=== PATIENT | female | born 1990 | race Caucasian/White ===

== ENCOUNTER 2016-11-26 17:23 | Emergency (ER) | payer SELFPAY ==
[2016-11-26 17:32] VITALS: BP 139/73
[2016-11-26 18:13] LABS: APPEARANCE,URINE CLOUDY; BILIRUBIN,URINE NEGATIVE (NEGATIVE); GLUCOSE, URINE NEGATIVE (NEGATIVE); KETONES,URINE NEGATIVE (NEGATIVE); LEUKOCYTE ESTERASE,URINE LARGE (NEGATIVE); NITRITE,URINE NEGATIVE (NEGATIVE); PROTEIN,URINE 100 mg/dL (NEGATIVE); URINE SPECIFIC GRAVITY 1.009; UROBILINOGEN,URINE NEGATIVE mg/dL (<2.0)
--- NOTE | 2016-11-26 18:44 | ER Document Report ---
ED Medical Screen (RME) - General Chief Complaint: Abdominal Pain Stated Complaint: ABDOMINAL PAIN,NAUSEA Time Seen by Provider: 11/26/16 18:43 Notes: Patient states that her last menstrual period was October 30. She also states that she took a home test was positive and she noticed today that she is having some abdominal cramping and spotting. TRAVEL OUTSIDE OF THE [place] IN LAST 30 DAYS: No - Related Data Allergies/Adverse Reactions: No Known Allergies Allergy (Unverified 11/26/16 17:31) Past Medical History - Social History Chew tobacco use (# tins/day): No Frequency of alcohol use: None Drug Abuse: None Renal/ Medical History: Denies: Hx Peritoneal Dialysis Past Surgical History: Reports: Hx Section - Immunizations Hx Diphtheria, Pertussis, Tetanus Vaccination: No Physical Exam - Vital signs Vitals: Temp Pulse Resp BP Pulse Ox 98.5 F 104 H 14 139/73 H 100 11/26/16 17:30 11/26/16 17:30 11/26/16 17:30 11/26/16 17:30 11/26/16 17:30 Course - Vital Signs Vital signs: Temp Pulse Resp BP Pulse Ox 98.5 F 104 H 14 139/73 H 100 11/26/16 17:30 11/26/16 17:30 11/26/16 17:30 11/26/16 17:30 11/26/16 17:30 - Laboratory Laboratory results interpreted by me: 11/26/16 17:35 Urine Protein 100 H Urine Blood LARGE H Ur Leukocyte Esterase LARGE H
[2016-11-26] MEDS ORDERED: ACETAMINOPHEN 325 MG TABLET PO ONE (20:27)
[2016-11-26 20:31] LABS: ABSOLUTE LYMPHOCYTES (AUTO) 1.2 10^3/uL (0.5-4.7); ABSOLUTE MONOCYTES (AUTO) 0.7 10^3/uL (0.1-1.4); ABSOLUTE NEUT (AUTO) 10.7 10^3/uL (1.7-8.2); BASOPHILS % (AUTO) 0.2 % (0-2); EOSINOPHILS % (AUTO) 0.1 % (0-6); HEMATOCRIT 42.3 % (36.0-47.0); HEMOGLOBIN 14.6 g/dL (12.0-15.5); HGB HCT DIFFERENCE 1.5; LYMPHOCYTES % (AUTO) 9.7 % (13-45); MEAN CORPUSCULAR HEMOGLOBIN 31.1 pg (27.0-33.4); MEAN CORPUSCULAR HGB CONC 34.6 g/dL (32.0-36.0); MEAN CORPUSCULAR VOLUME 90 fl (80-97); MONOCYTES % (AUTO) 5.7 % (3-13); RED CELL DISTRIBUTION WIDTH 13.3 % (11.5-14.0); SEGMENTED NEUTROPHILS % (AUTO) 84.3 % (42-78); WHITE BLOOD COUNT 12.7 10^3/uL (4.0-10.5)
[2016-11-26 20:51] LABS: APPEARANCE,URINE SLIGHTLY-CLOUDY; BILIRUBIN,URINE NEGATIVE (NEGATIVE); GLUCOSE, URINE NEGATIVE (NEGATIVE); KETONES,URINE 20 mg/dL (NEGATIVE); LEUKOCYTE ESTERASE,URINE LARGE (NEGATIVE); NITRITE,URINE NEGATIVE (NEGATIVE); PROTEIN,URINE 100 mg/dL (NEGATIVE); URINE SPECIFIC GRAVITY 1.009; UROBILINOGEN,URINE NEGATIVE mg/dL (<2.0)
[2016-11-26 23:25] LABS: ALANINE AMINOTRANSFERASE 35 U/L (9-52); ALKALINE PHOSPHATASE 63 U/L (38-126); ANION GAP 11 (5-19); ASPARTATE AMINO TRANSFERASE 25 U/L (14-36); BILIRUBIN,DIRECT 0.3 mg/dL (0.0-0.4); BILIRUBIN,TOTAL 0.6 mg/dL (0.2-1.3); BLOOD UREA NITROGEN 8 mg/dL (7-20); CALCIUM 9.1 mg/dL (8.4-10.2); CARBON DIOXIDE 22 mmol/L (22-30); CHLORIDE 105 mmol/L (98-107); CREATININE RESULT 0.64 mg/dL (0.52-1.25); GLUCOSE 155 mg/dL (75-110); POTASSIUM 3.7 mmol/L (3.6-5.0); SODIUM 138.1 mmol/L (137-145); TOTAL PROTEIN 6.9 g/dL (6.3-8.2)
[2016-11-27] MEDS ORDERED: CEPHALEXIN 500 MG CAPSULE PO ONE (00:36)
--- NOTE | 2016-11-27 00:38 | ER Document Report ---
ED General - General Chief Complaint: Abdominal Pain Stated Complaint: ABDOMINAL PAIN,NAUSEA Time Seen by Provider: 11/26/16 18:43 Notes: Patient is a 26-year-old female at approximately 3 weeks based on LMP who presents with complaints of lower abdominal cramping, dysuria and intermittent bilateral flank pain for the past 3 days. Pain in the lower abdomen is a mild, intermittent, cramping pain that has been unchanged since onset. Patient does report that she has had some intermittent vaginal bleeding over the last 5 days. She has had a positive home test but has not yet had an ultrasound as an outpatient. She has not seen a primary care doctor regarding these concerns. Nothing improves or worsens the dysuria and flank pain but she does note the lower abdominal cramping does resolve when she takes Tylenol. No history of recent similar symptoms. She has not had any fever or constitutional symptoms. Please note that the patient is [place] Sor[place] speaking and a formal hospital firearms sales associate was offered to the patient at the beginning of the encounter and she did decline stating that she would rather have her sister translate. TRAVEL OUTSIDE OF THE [place] IN LAST 30 DAYS: No - Related Data Allergies/Adverse Reactions: No Known Allergies Allergy (Unverified 11/26/16 17:31) Past Medical History - General Information source: Patient - Social History Smoking Status: Never Smoker Chew tobacco use (# tins/day): No Frequency of alcohol use: None Drug Abuse: None Lives with: Family Family History: Reviewed & Not Pertinent Renal/ Medical History: Denies: Hx Peritoneal Dialysis Past Surgical History: Reports: Hx Section - Immunizations Hx Diphtheria, Pertussis, Tetanus Vaccination: No Review of Systems - Review of Systems Notes: Constitutional: Negative for fever. HENT: Negative for sore throat. Eyes: Negative for visual changes. Cardiovascular: Negative for chest pain. Respiratory: Negative for shortness of breath. Gastrointestinal: Positive for lower abdominal cramping Genitourinary: Positive for dysuria. Musculoskeletal: Negative for back pain. Skin: Negative for rash. Neurological: Negative for headaches, weakness or numbness. 10 point ROS negative except as marked above and in HPI. Physical Exam - Vital signs Vitals: Temp Pulse Resp BP Pulse Ox 98.5 F 104 H 14 139/73 H 100 11/26/16 17:30 11/26/16 17:30 11/26/16 17:30 11/26/16 17:30 11/26/16 17:30 Interpretation: Tachycardic Notes: PHYSICAL EXAMINATION: GENERAL: Well-appearing, well-nourished and in no acute distress. HEAD: Atraumatic, normocephalic. EYES: Pupils equal round and reactive to light, extraocular movements intact, sclera anicteric, conjunctiva are normal. ENT: nares patent, oropharynx clear without exudates. Moist mucous membranes. NECK: Normal range of motion, supple without lymphadenopathy LUNGS: Breath sounds clear to auscultation bilaterally and equal. No wheezes rales or rhonchi. HEART: Regular rate and rhythm without murmurs ABDOMEN: Soft, nontender, normoactive bowel sounds. No guarding, no rebound. No masses appreciated. Mild left-sided CVA tenderness. EXTREMITIES: Normal range of motion, no pitting or edema. No cyanosis. NEUROLOGICAL: No focal neurological deficits. Moves all extremities spontaneously and on command. PSYCH: Normal mood, normal affect. SKIN: Warm, Dry, normal turgor, no rashes or lesions noted. Course - Re-evaluation Re-evalutation: 11/27/16 00:37 Patient presents with symptoms consistent with an acute cystitis. Vitals wnl. No history of fever, or constitution symptoms to suggest ascending infection at this time although patient does have mild left-sided flank tenderness. Patient is well in appearance, tolerating oral intake without difficulty. No focal abdominal tenderness to suggest acute appendicitis, biliary pathology, acute pancreatitis, tubo-ovarian abscesses, or pelvic inflammatory disease. Patient has complained of some mild intermittent abdominal pain which she states is now completely resolved after a dose of Tylenol. Patient is currently but her hCG is only 15 making an acute ectopic highly unlikely. A transvaginal ultrasound was obtained prior to me knowing that the hCG was this low. This is not going to be diagnostically useful given how low the hcg is. I have instructed her to follow-up in the women's clinic for repeat hCG to ensure that it is trending downward as I suspect based on her history of vaginal bleeding for the past 5 days that she is actively having a miscarriage. She denies any bleeding at presentation. She knows that her blood type is A+ . Patient will be started on antibiotics at this time. A culture has been sent. They will be discharged with return precautions and follow-up recommendations. 11/27/16 00:40 - Vital Signs Vital signs: Temp Pulse Resp BP Pulse Ox 100.1 F 74 18 139/73 H 96 11/26/16 20:07 11/27/16 00:57 11/27/16 00:57 11/26/16 17:30 11/27/16 00:57 - Laboratory Result Diagrams: 11/26/16 20:05 11/26/16 22:56 Laboratory results interpreted by me: 11/26/16 11/26/16 11/26/16 17:35 19:50 20:05 WBC 12.7 H Seg Neutrophils % 84.3 H Lymphocytes % 9.7 L Absolute Neutrophils 10.7 H Glucose Beta HCG, Quant Urine Protein 100 H 100 H Urine Ketones 20 H Urine Blood LARGE H LARGE H Ur Leukocyte Esterase LARGE H LARGE H 11/26/16 22:56 WBC Seg Neutrophils % Lymphocytes % Absolute Neutrophils Glucose 155 H Beta HCG, Quant 15.55 H Urine Protein Urine Ketones Urine Blood Ur Leukocyte Esterase - Diagnostic Test Radiology reviewed: Reports reviewed Discharge - Discharge Clinical Impression: Vaginal bleeding during , antepartum Urinary tract infection Qualifiers: Urinary tract infection type: acute cystitis Hematuria presence: with hematuria Qualified Code(s): N30.01 - Acute cystitis with hematuria Condition: Good Disposition: HOME, SELF-CARE Additional Instructions: Your urine shows findings consistent with a urinary tract infection. Please take all the antibiotics as directed even if your symptoms have improved. Please follow-up with your primary care physician as needed. Return to emergency room if you develop fever >101F, persistent vomiting, become lethargic , have severe pain in your sides, or any other symptoms that are concerning to you. You need to return to the ED or the women's health clinic in 48 hours for a recheck of your hormone level. The ultrasound is unable to see anything at this time because you are too early in your . Please return if you develop severe abdominal pain, bleeding that goes through more than 2 pads for more than 2 hours, pass out, or have any other symptoms that are concerning to you. Please follow-up closely with your OBGYN regarding todays visit. Prescriptions: Cephalexin Monohydrate [Keflex 500 mg Capsule] 500 mg PO Q6H 7 Days #28 capsule
--- NOTE | 2016-11-27 01:31 | RADIOLOGY REPORT (SQ) ---
EXAM DESCRIPTION: U/S OB TRANSVAGINAL W/O DOP COMPLETED DATE/TIME: 11/27/2016 12:23 am REASON FOR STUDY: abdominal pain, preg COMPARISON: None. TECHNIQUE: Transvaginal static and realtime grayscale images acquired of the pelvis. Additional citlaly cted spectral and color Doppler images recorded. All images stored on PACs. BHC.6 LIMITATIONS: None. FINDINGS: UTERUS: No visualized intrauterine . RIGHT ADNEXA: Normal ovary with normal vascular flow. No adnexal free fluid. No adnexal masses. 3.1 cm right ovary contains a 1.7 cm complex cystic component within normal limits . LEFT ADNEXA: Normal ovary with normal vascular flow. No adnexal free fluid. No adnexal masses. 2.5 cm. FREE FLUID: Small moderate anechoic free pelvic fluid. OTHER: No other significant finding. IMPRESSION: Small to moderate free fluid. NO VISUALIZED INTRA- OR EXTRAUTERINE . bHCG LEVEL TOO LOW TO EXPECT VISUALIZATION OF . ECTOPIC CANNOT BE EXCLUDED. FOLLOW-UP ULTRASOUND AND SERIAL BHCG LEVELS STRONGLY RECOMMENDED TO ACCURATELY ASSESS STATU S. TECHNICAL DOCUMENTATION: JOB ID: [id number] [employer]- All Rights Reserved
== END 2016-11-27 00:57 | disposition home or self-care (01) ==
LOC: ER 17:23
DX: O46.91 Antepartum hemorrhage, unspecified, first trimester (principal); N30.01 Acute cystitis with hematuria; R10.9 Unspecified abdominal pain; R11.0 Nausea; R10.30 Lower abdominal pain, unspecified; Z3A.00 Weeks of gestation of pregnancy not specified
CPT/HCPCS: 36415; 76817; 80053; 81001; 84702; 85025; 86900; 86901; 87086; 87088; 87186; 99284

== ENCOUNTER 2016-12-28 13:22 | Emergency (ER) | payer SELFPAY ==
--- NOTE | 2016-12-28 14:02 | ER Document Report ---
ED GI/ - General Mode of Arrival: Ambulatory Information source: Relative TRAVEL OUTSIDE OF THE [place] IN LAST 30 DAYS: No - HPI Patient complains to provider of: Pelvic pain, , Vaginal bleeding Onset: This morning Vaginal bleeding (Compared to normal period): Spotting <JUAN STEVENS - Last Filed: 12/28/16 15:04> <DIONNELEROY - Last Filed: 12/28/16 15:55> - General Chief Complaint: Vag Bleeding, +preg <12wks Stated Complaint: VAGINAL BLEEDING Time Seen by Provider: 12/28/16 13:47 Notes: Patient is a 26 year old female being translated by her sister at bedside that presents to the emergency department complaining of vaginal spotting with cramping. Patient's sister states that the patient started spotting around 0700 this morning. Patient presented one month ago to the emergency department and was found to be . Patient followed up with [facility] and is now taking vitamins. Patient is A1. (JUAN STEVENS) - Related Data Allergies/Adverse Reactions: No Known Allergies Allergy (Unverified 12/28/16 13:25) Past Medical History - General Information source: Relative - Social History Smoking Status: Never Smoker Cigarette use (# per day): No Chew tobacco use (# tins/day): No Smoking Education Provided: No Drug Abuse: None Family History: None Patient has suicidal ideation: No Patient has homicidal ideation: No Past Surgical History: Reports: Hx Section - Immunizations Hx Diphtheria, Pertussis, Tetanus Vaccination: No <JUAN STEVENS - Last Filed: 12/28/16 15:04> Review of Systems - Review of Systems Constitutional: No symptoms reported EENT: No symptoms reported Cardiovascular: No symptoms reported Respiratory: No symptoms reported Gastrointestinal: No symptoms reported Genitourinary: No symptoms reported Female Genitourinary: , Vaginal bleeding - spotting, Other - cramping Musculoskeletal: No symptoms reported Skin: No symptoms reported Hematologic/Lymphatic: No symptoms reported Neurological/Psychological: No symptoms reported -: Yes All other systems reviewed and negative <JUAN STEVENS - Last Filed: 12/28/16 15:04> Physical Exam - General General appearance: Appears well, Alert - HEENT Head: Normocephalic, Atraumatic Pupils: PERRL Mucous membranes: Moist - Respiratory Respiratory status: No respiratory distress - Cardiovascular Rhythm: Regular - Abdominal Inspection: Gravid female Distension: No distension Organomegaly: No organomegaly - Back Back: Normal - Extremities General upper extremity: Normal inspection, Normal ROM, Normal strength General lower extremity: Normal inspection, Normal ROM, Normal strength - Neurological Neuro grossly intact: Yes Cognition: Normal Orientation: AAOx4 Jaime Coma Scale Eye Opening: Spontaneous Jaime Coma Scale Verbal: Oriented [place] Coma Scale Motor: Obeys Commands Jaime Coma Scale Total: 15 Speech: Normal - Psychological Associated symptoms: Normal affect, Normal mood - Skin Skin Temperature: Warm Skin Moisture: Dry Skin Color: Normal <JUAN STEVENS - Last Filed: 12/28/16 15:04> - Vital signs Vitals: Temp Pulse Resp BP Pulse Ox 98.4 F 78 16 113/63 99 12/28/16 13:25 12/28/16 13:25 12/28/16 13:25 12/28/16 13:25 12/28/16 13:25 Course - Laboratory Result Diagrams: 12/28/16 14:01 <JUAN STEVENS - Last Filed: 12/28/16 15:04> - Laboratory Result Diagrams: 12/28/16 14:01 - Diagnostic Test Radiology reviewed: Reports reviewed - 7 week 6 day intrauterine with heart rate 165. No bleed seen. <LEROY TRUONG - Last Filed: 12/28/16 15:55> - Vital Signs Vital signs: Temp Pulse Resp BP Pulse Ox 98.4 F 78 16 113/63 99 12/28/16 13:25 12/28/16 13:25 12/28/16 13:52 12/28/16 13:25 12/28/16 13:25 - Laboratory Laboratory results interpreted by me: 12/28/16 14:01 Ur Leukocyte Esterase TRACE H Discharge <JUAN STEVENS - Last Filed: 12/28/16 15:04> <LEROY TRUONG - Last Filed: 12/28/16 15:55> - Discharge Clinical Impression: Intrauterine , Bleeding in early Condition: Stable Disposition: HOME, SELF-CARE Additional Instructions: Bleeding During Early : You have been evaluated for passing blood while . While we take this symptom very seriously, most women with your degree of bleeding will go on to have a perfectly normal baby. At this time, there is no indication that a miscarriage will occur. (A miscarriage occurs when the fetus is abnormal. There is no medicine or treatment to prevent it.) A more serious cause of bleeding is tubal . An ultrasound can show whether the is in the uterus or in the tube. Sometimes in early , no fetus is seen. In this case, careful follow-up, including repeat blood tests and repeat ultrasound, is necessary. You should rest in bed until the symptoms have resolved. Do not douche or have sex for at least a week, or until OK'd by the doctor. Don't use tampons. Call the doctor or return for re-examination if there is an increase in bleeding or cramping, extreme weakness, fainting, new abdominal pain, fever, or passage of tissue. //////////////////////////////////////////////////////////////////////////////// //////////////////////////////////////////////////////////////////////////////// //////////////// Your ultrasound shows a 7 week 6 day intrauterine with a heart rate of 155. There is no bleeding seen. You should remain at bedrest and pelvic rest until you are no longer having any cramping or bleeding. Drink plenty of fluids. [facility] for recheck. Referrals: [facility] [Provider Group] - Follow up in 3-5 days Sona Attestation: 12/28/16 15:54 I personally performed the services described in the documentation, reviewed and edited the documentation which was dictated to the scribe in my presence, and it accurately records my words and actions. (LEROY TRUONG) Scribe Documentation - Scribe Written by Sona:: Sona Sanches 12/28/2016 14:10 acting as scribe for :: Dionne <JUAN STEVENS - Last Filed: 12/28/16 15:04>
[2016-12-28 14:20] LABS: APPEARANCE,URINE CLEAR; BILIRUBIN,URINE NEGATIVE (NEGATIVE); GLUCOSE, URINE NEGATIVE (NEGATIVE); KETONES,URINE NEGATIVE (NEGATIVE); LEUKOCYTE ESTERASE,URINE TRACE (NEGATIVE); NITRITE,URINE NEGATIVE (NEGATIVE); PROTEIN,URINE NEGATIVE (NEGATIVE); URINE SPECIFIC GRAVITY 1.018; UROBILINOGEN,URINE NEGATIVE mg/dL (<2.0)
[2016-12-28 14:21] LABS: ABSOLUTE EOSINOPHILS # (AUTO) 0.2 10^3/uL (0.0-0.6); ABSOLUTE LYMPHOCYTES (AUTO) 2.4 10^3/uL (0.5-4.7); ABSOLUTE MONOCYTES (AUTO) 0.6 10^3/uL (0.1-1.4); ABSOLUTE NEUT (AUTO) 5.3 10^3/uL (1.7-8.2); BASOPHILS % (AUTO) 0.5 % (0-2); HEMATOCRIT 38.7 % (36.0-47.0); HEMOGLOBIN 13.2 g/dL (12.0-15.5); HGB HCT DIFFERENCE 0.9; MEAN CORPUSCULAR HEMOGLOBIN 30.1 pg (27.0-33.4); MEAN CORPUSCULAR HGB CONC 34.1 g/dL (32.0-36.0); MEAN CORPUSCULAR VOLUME 88 fl (80-97); MONOCYTES % (AUTO) 7.4 % (3-13); RED BLOOD COUNT 4.37 10^6/uL (3.72-5.28); RED CELL DISTRIBUTION WIDTH 13.5 % (11.5-14.0); SEGMENTED NEUTROPHILS % (AUTO) 62.1 % (42-78); WHITE BLOOD COUNT 8.5 10^3/uL (4.0-10.5)
--- NOTE | 2016-12-28 15:41 | RADIOLOGY REPORT (SQ) ---
EXAM DESCRIPTION: U/S OB TRANSVAGINAL W/O DOP COMPLETED DATE/TIME: 12/28/2016 3:22 pm REASON FOR STUDY: bleeding, cramping COMPARISON: None. TECHNIQUE: Transvaginal static and realtime grayscale images acquired of the pelvis. Additional citlaly cted spectral and color Doppler images recorded. All images stored on PACs. bHCG: Not available. LIMITATIONS: None. FINDINGS: FETUS: Living intrauterine . EGA: 7 weeks 6 days DIDI: 08/10/2017 FHR: 165 beats per minute. SUBCHORIONIC BLEED: No. SIZE OF BLEED: Not applicable. UTERUS: No masses. No anomalies. CERVICAL LENGTH: 4.0 cm Closed. RIGHT ADNEXA: Normal ovary with normal vascular flow. No adnexal free fluid. No adnexal masses. LEFT ADNEXA: Normal ovary with normal vascular flow. No adnexal free fluid. No adnexal masses. FREE FLUID: None. OTHER: No other significant finding. IMPRESSION: LIVING INTRAUTERINE . EGA 7 weeks 6 days. Trimester of : First - 0 to 13 weeks. TECHNICAL DOCUMENTATION: JOB ID: [id number] [employer]- All Rights Reserved
[2016-12-28 16:21] VITALS: BP 115/67
== END 2016-12-28 16:21 | disposition home or self-care (01) ==
LOC: ER 13:22
DX: O26.851 Spotting complicating pregnancy, first trimester (principal); O26.891 Other specified pregnancy related conditions, first trimester; R10.2 Pelvic and perineal pain; Z3A.01 Less than 8 weeks gestation of pregnancy; Z79.899 Other long term (current) drug therapy
CPT/HCPCS: 36415; 76817; 81001; 84702; 85025; 99284

== ENCOUNTER 2017-05-05 13:45 | Emergency (ER) | payer BC ==
[2017-05-05] MEDS ORDERED: NORMAL SALINE 1000 ML 1,000 ML IV ONE (14:18)
--- NOTE | 2017-05-05 14:19 | ER Document Report ---
ED Medical Screen (RME) - General Chief Complaint: Nausea/Vomiting/Diarrhea Stated Complaint: DIARRHEA Time Seen by Provider: 05/05/17 14:18 Notes: Patient states she is 27 weeks and [facility]. She states she has had a normal to this point. She had a normal ultrasound. She states that she comes in today because of nausea vomiting diarrhea since yesterday. She states she thinks that she may have had some bad tomatoes. TRAVEL OUTSIDE OF THE [place] IN LAST 30 DAYS: No - Related Data Allergies/Adverse Reactions: No Known Allergies Allergy (Unverified 12/28/16 13:25) Past Medical History Renal/ Medical History: Denies: Hx Peritoneal Dialysis Past Surgical History: Reports: Hx Section - Immunizations Hx Diphtheria, Pertussis, Tetanus Vaccination: No Physical Exam - Vital signs Vitals: Temp Pulse Resp BP Pulse Ox 98.1 F 100 16 112/60 96 05/05/17 13:54 05/05/17 13:54 05/05/17 13:54 05/05/17 13:54 05/05/17 13:54 Course - Vital Signs Vital signs: Temp Pulse Resp BP Pulse Ox 98.1 F 100 16 112/60 96 05/05/17 13:54 05/05/17 13:54 05/05/17 13:54 05/05/17 13:54 05/05/17 13:54
[2017-05-05 14:53] LABS: ABSOLUTE MONOCYTES (AUTO) 0.5 10^3/uL (0.1-1.4); ABSOLUTE NEUT (AUTO) 9.2 10^3/uL (1.7-8.2); BASOPHILS % (AUTO) 0.3 % (0-2); EOSINOPHILS % (AUTO) 0.4 % (0-6); LYMPHOCYTES % (AUTO) 9.5 % (13-45); MEAN CORPUSCULAR HEMOGLOBIN 31.1 pg (27.0-33.4); MEAN CORPUSCULAR HGB CONC 34.2 g/dL (32.0-36.0); MEAN CORPUSCULAR VOLUME 91 fl (80-97); MONOCYTES % (AUTO) 4.7 % (3-13); PLATELET COUNT 208 10^3/uL (150-450); SEGMENTED NEUTROPHILS % (AUTO) 85.1 % (42-78); TOTAL CELLS COUNTED % (AUTO) 100 %; WHITE BLOOD COUNT 10.8 10^3/uL (4.0-10.5)
[2017-05-05 14:54] LABS: APPEARANCE,URINE SLIGHTLY-CLOUDY; BILIRUBIN,URINE NEGATIVE (NEGATIVE); COLOR,URINE YELLOW; GLUCOSE, URINE NEGATIVE (NEGATIVE); KETONES,URINE 20 mg/dL (NEGATIVE); LEUKOCYTE ESTERASE,URINE NEGATIVE (NEGATIVE); NITRITE,URINE NEGATIVE (NEGATIVE); PROTEIN,URINE NEGATIVE (NEGATIVE); URINE SPECIFIC GRAVITY 1.026; UROBILINOGEN,URINE NEGATIVE mg/dL (<2.0)
[2017-05-05 15:14] LABS: ALANINE AMINOTRANSFERASE 30 U/L (9-52); ALBUMIN 4.1 g/dL (3.5-5.0); ALKALINE PHOSPHATASE 85 U/L (38-126); ANION GAP 10 (5-19); ASPARTATE AMINO TRANSFERASE 26 U/L (14-36); BILIRUBIN,DIRECT 0.2 mg/dL (0.0-0.4); BILIRUBIN,TOTAL 0.6 mg/dL (0.2-1.3); BLOOD UREA NITROGEN 8 mg/dL (7-20); CALCIUM 8.6 mg/dL (8.4-10.2); CARBON DIOXIDE 21 mmol/L (22-30); CHLORIDE 106 mmol/L (98-107); GLUCOSE 80 mg/dL (75-110); LIPASE 73.7 U/L (23-300); POTASSIUM 3.7 mmol/L (3.6-5.0); SODIUM 137.3 mmol/L (137-145); TOTAL PROTEIN 7.6 g/dL (6.3-8.2)
--- NOTE | 2017-05-05 15:42 | ER Document Report ---
ED General - General Chief Complaint: Nausea/Vomiting/Diarrhea Stated Complaint: DIARRHEA Time Seen by Provider: 05/05/17 14:18 Notes: 26-year-old female patient emergency department chief complaint of nausea, vomiting, diarrhea. Symptoms began yesterday. Patient is 27 weeks . Denies any other major medical problems. No other sick contacts at home. No specific abdominal pain with diffuse abdominal cramping. Nonradiating. No other associated signs or symptoms with exception of nausea, vomiting, diarrhea and crampy abdominal pain. No other sick contacts at home. No recent antibiotic use. [facility] for her [facility]etrical care. No prior surgeries. Patient is from [place] and speaks [place] TRAVEL OUTSIDE OF THE [place] IN LAST 30 DAYS: No - HPI Onset: Yesterday - Related Data Allergies/Adverse Reactions: No Known Allergies Allergy (Unverified 12/28/16 13:25) Past Medical History - General Information source: Patient - Social History Smoking Status: Never Smoker Cigarette use (# per day): No Smoking Education Provided: No Frequency of alcohol use: None Drug Abuse: None Lives with: Spouse/Significant other Family History: None Patient has suicidal ideation: No Patient has homicidal ideation: No Renal/ Medical History: Denies: Hx Peritoneal Dialysis Past Surgical History: Reports: Hx Section - 2014 - Immunizations Hx Diphtheria, Pertussis, Tetanus Vaccination: No Review of Systems - Review of Systems Constitutional: No symptoms reported. denies: Fever, Malaise, Weakness EENT: No symptoms reported. denies: Ear pain, Throat pain, Mouth pain, Dental problem, Vertigo Cardiovascular: No symptoms reported. denies: Chest pain, Palpitations, Heart racing Respiratory: No symptoms reported. denies: Cough, Hurts to breathe, Hemoptysis , Wheezing Gastrointestinal: No symptoms reported, Abdominal pain, Diarrhea, Nausea, Vomiting. denies: Constipation, Black stools, Rectal bleeding Genitourinary: No symptoms reported. denies: Burning, Dysuria, Discharge, Frequency Female Genitourinary: No symptoms reported, . denies: Vaginal discharge , Vaginal bleeding Musculoskeletal: No symptoms reported. denies: Back pain, Gout, Joint pain, Joint swelling, Muscle pain, Muscle stiffness Skin: No symptoms reported. denies: Change in color, Lesions, Rash Hematologic/Lymphatic: No symptoms reported. denies: Anemia, Blood clots, Easy bleeding, Easy bruising Neurological/Psychological: No symptoms reported. denies: Dementia, Depression , Weakness, Numbness Physical Exam - Vital signs Vitals: Temp Pulse Resp BP Pulse Ox 98.1 F 100 16 112/60 96 05/05/17 13:54 05/05/17 13:54 05/05/17 13:54 05/05/17 13:54 05/05/17 13:54 Interpretation: Normal - General General appearance: Appears well, Alert - HEENT Head: Normocephalic, Atraumatic Eyes: Normal Pupils: PERRL - Respiratory Respiratory status: No respiratory distress Chest status: Nontender Breath sounds: Normal Chest palpation: Normal - Cardiovascular Rhythm: Regular Heart sounds: Normal auscultation Murmur: No - Abdominal Inspection: Normal Distension: No distension, Other - 27 week gravid abdomen Bowel sounds: Normal Tenderness: Nontender Organomegaly: No organomegaly - Back Back: Normal, Nontender - Extremities General upper extremity: Normal inspection, Nontender, Normal color, Normal ROM , Normal temperature General lower extremity: Normal inspection, Nontender, Normal color, Normal ROM , Normal temperature, Normal weight bearing. No: Germaine's sign - Neurological Neuro grossly intact: Yes Cognition: Normal Orientation: AAOx4 [place] Coma Scale Eye Opening: Spontaneous Jaime Coma Scale Verbal: Oriented [place] Coma Scale Motor: Obeys Commands [place] Coma Scale Total: 15 Speech: Normal Motor strength normal: LUE, RUE, LLE, RLE Sensory: Normal - Psychological Associated symptoms: Normal affect, Normal mood - Skin Skin Temperature: Warm Skin Moisture: Dry Skin Color: Normal Course - Re-evaluation Re-evalutation: 05/05/17 15:51 This is well-appearing female in no acute distress. Symptoms consistent with a gastroenteritis. Patient was concerned because she had premature delivery at 36 weeks with demise. Labs are obtained. Will get heart tones. Not tachycardic. Will hydrate. Does have some ketones in his urine so we will give her some D5 half-normal as well 05/05/17 17:04 She feeling much better at this time. Tolerating p.o. Will DC. - Vital Signs Vital signs: Temp Pulse Resp BP Pulse Ox 98.1 F 100 16 112/60 96 05/05/17 13:54 05/05/17 13:54 05/05/17 13:54 05/05/17 13:54 05/05/17 13:54 - Laboratory Result Diagrams: 05/05/17 14:37 05/05/17 14:37 Laboratory results interpreted by me: 05/05/17 05/05/17 05/05/17 14:37 14:37 14:37 WBC 10.8 H Seg Neutrophils % 85.1 H Lymphocytes % 9.5 L Absolute Neutrophils 9.2 H Carbon Dioxide 21 L Creatinine 0.46 L Urine Ketones 20 H Discharge - Discharge Clinical Impression: Gastroenteritis Condition: Good Disposition: HOME, SELF-CARE Instructions: Antinausea Medication ([facility]), Gastroenteritis (adult) ([facility]) Additional Instructions: If symptoms are getting worse, worsening abdominal pain or any other concerns please return to the emergency department especially within the next 24 hours. Prescriptions: Ondansetron [Zofran Odt 4 mg Tablet] 1 - 2 tab PO Q4H PRN #15 tab.rapdis PRN Reason: For Nausea/Vomiting Ranitidine HCl [Zantac 75 mg Tablet] 75 mg PO BID 7 Days #14 tablet Referrals: TAYA CANALES MD [Primary Care Provider] - Follow up as needed
[2017-05-05] MEDS ORDERED: DEXTROSE 5%-1/2 NORMAL SALINE 500 ML IV ONE (15:47)
[2017-05-05] MEDS ORDERED: FAMOTIDINE INJ/PF 20 MG/2 ML SDV IV ONE (15:48)
[2017-05-05] MEDS ORDERED: ONDANSETRON HCL INJ/PF 4 MG/2 ML SDV IV PRN (15:48)
[2017-05-05 17:29] VITALS: BP 112/56
== END 2017-05-05 18:27 | disposition home or self-care (01) ==
LOC: ER 13:45
DX: O26.892 Other specified pregnancy related conditions, second trimester (principal); K52.9 Noninfective gastroenteritis and colitis, unspecified; R11.2 Nausea with vomiting, unspecified; Z3A.27 27 weeks gestation of pregnancy
CPT/HCPCS: 99284; 96361; 96374; 96375; 36415; 83690; 85025; 80053; 81001; J2405; J7030; S0028

== ENCOUNTER 2017-08-13 05:05 | Inpatient (IN) | payer BC, MEDICAID ==
[2017-08-12 11:53] LABS: ABSOLUTE EOSINOPHILS # (AUTO) 0.1 10^3/uL (0.0-0.6); ABSOLUTE LYMPHOCYTES (AUTO) 2.2 10^3/uL (0.5-4.7); ABSOLUTE MONOCYTES (AUTO) 0.5 10^3/uL (0.1-1.4); ABSOLUTE NEUT (AUTO) 5.5 10^3/uL (1.7-8.2); BASOPHILS % (AUTO) 0.3 % (0-2); EOSINOPHILS % (AUTO) 0.8 % (0-6); HEMATOCRIT 38.6 % (36.0-47.0); HEMOGLOBIN 13.2 g/dL (12.0-15.5); LYMPHOCYTES % (AUTO) 26.9 % (13-45); MEAN CORPUSCULAR HEMOGLOBIN 29.5 pg (27.0-33.4); MEAN CORPUSCULAR HGB CONC 34.1 g/dL (32.0-36.0); MEAN CORPUSCULAR VOLUME 86 fl (80-97); MONOCYTES % (AUTO) 5.9 % (3-13); PLATELET COUNT 223 10^3/uL (150-450); RED BLOOD COUNT 4.47 10^6/uL (3.72-5.28); SEGMENTED NEUTROPHILS % (AUTO) 66.1 % (42-78); TOTAL CELLS COUNTED % (AUTO) 100 %; WHITE BLOOD COUNT 8.3 10^3/uL (4.0-10.5)
[2017-08-12 11:59] LABS: APPEARANCE,URINE SLIGHTLY-CLOUDY; BILIRUBIN,URINE NEGATIVE (NEGATIVE); COLOR,URINE YELLOW; GLUCOSE, URINE NEGATIVE (NEGATIVE); KETONES,URINE NEGATIVE (NEGATIVE); LEUKOCYTE ESTERASE,URINE TRACE (NEGATIVE); NITRITE,URINE NEGATIVE (NEGATIVE); PROTEIN,URINE NEGATIVE (NEGATIVE); URINE SPECIFIC GRAVITY 1.018; UROBILINOGEN,URINE NEGATIVE mg/dL (<2.0)
[2017-08-12 12:12] LABS: URINE AMPHETAMINES SCREEN NEGATIVE; URINE BARBITURATES SCREEN NEGATIVE; URINE BENZODIAZEPINES SCREEN NEGATIVE; URINE COCAINE SCREEN NEGATIVE; URINE MARIJUANA (THC) SCREEN NEGATIVE; URINE METHADONE SCREEN NEGATIVE; URINE PHENCYCLIDINE SCREEN NEGATIVE
[~2017-08-13 05:05] MED LIST: AZITHROMYCIN 500 MG in DEXTROSE 5%-WATER 250 ML IV PRN; AZITHROMYCIN INJ 500 MG VIAL IV PRN; CEFAZOLIN 1 GM/D5W RTU 1 GM/50 ML RTUPB IV PRN; LACTATED RINGERS 1000 ML IV PRN; RINGERS SOLUTION,LACTATED 2,000 ML IV PRN
[2017-08-13] MEDS ORDERED: ONDANSETRON HCL INJ/PF 4 MG/2 ML SDV ONE ×2 (07:02→07:15)
[2017-08-13] MEDS ORDERED: TETRACAINE HCL/PF 20MG/2ML AMPULE (SPINAL) ONE (07:09)
[2017-08-13] MEDS ORDERED: FENTANYL CITRATE INJ/PF 100 MCG/2 ML AMPUL ONE (07:14)
[2017-08-13] MEDS ORDERED: OXYTOCIN 10 UNIT/ML VIAL ONE (07:14)
[2017-08-13] MEDS ORDERED: KETOROLAC TROMETHAMINE INJ/PF 30 MG/1 ML SDV ONE (07:14)
[2017-08-13] MEDS ORDERED: OXYTOCIN/NORMAL SALINE 20 UNIT/1,000 ML RTUINJ ONE (07:15)
[2017-08-13] MEDS ORDERED: MIDAZOLAM 2 MG/2 ML INJ ONE (07:15)
[2017-08-13] MEDS ORDERED: METHYLERGONOVINE MALEATE INJ/PF 0.2 MG/1 ML AMPULE ONE (07:15)
[2017-08-13] MEDS ORDERED: ACETAMINOPHEN 1,000 MG/100 ML RTUPB IV ONE (07:15)
[2017-08-13] MEDS ORDERED: EPHEDRINE SULFATE INJ 50 MG/1 ML AMPULE ONE (07:15)
[2017-08-13] MEDS ORDERED: OXYCODONE-ACETAMINOPHEN 5-325 MG TABLET PO PRN ×2 (08:19)
[2017-08-13] MEDS ORDERED: MORPHINE SULFATE 10 MG/ML INJ IV PRN (08:19)
[2017-08-13] MEDS ORDERED: MEPERIDINE HCL/PF INJ 25 MG/1 ML DISP.SYRIN IV PRN (08:19)
[2017-08-13] MEDS ORDERED: FENTANYL CITRATE INJ/PF 100 MCG/2 ML AMPUL IV PRN ×3 (08:19)
[2017-08-13] MEDS ORDERED: PROMETHAZINE HCL INJ 25 MG/1 ML VIAL IV PRN ×3 (08:19→08:36)
[2017-08-13] MEDS ORDERED: ONDANSETRON HCL INJ/PF 4 MG/2 ML SDV IV PRN (08:19)
[2017-08-13] MEDS ORDERED: DIPHENHYDRAMINE HCL 50 MG/ML VIAL IV PRN (08:19)
[2017-08-13] MEDS ORDERED: ACETAMINOPHEN 325 MG TABLET PO PRN (08:36)
[2017-08-13] MEDS ORDERED: OXYTOCIN/NORMAL SALINE 20 UNIT/1,000 ML RTUINJ IV PRN (08:36)
[2017-08-13] MEDS ORDERED: MORPHINE SULFATE 10 MG/ML INJ IM PRN (08:36)
[2017-08-13] MEDS ORDERED: SIMETHICONE 80 MG TAB.CHEW PO PRN (08:36)
[2017-08-13] MEDS ORDERED: DIPH/PERTUSS(ACELL)/TETANUS VAC/PF 0.5 ML SYR (>=10YO) IM PRN (08:36)
[2017-08-13] MEDS ORDERED: MEASLES,MUMPS&RUBELLA VACC/PF 0.5 ML VIAL SUBCUT PRN (08:36)
--- NOTE | 2017-08-13 08:36 | PDOC DELIVERY SUMMARY ---
Delivery Summary - Maternal Hx : III Hx # Pregnancies: 1 Hx Total # of Abortions (Sponateous & Elective): 1 DIDI: 08/08/17 Ruptured Membranes: AROM Time of Rupture: 08:11 Fluids: Clear - Delivery Labor: Not In Labor Presentation: Face/Brow Heart Rate Monitoring: Done Pre-Operatively Support Person Present: Yes Location: OR : Scheduled, Repeat Placenta: Within Normal Limits Nuchal Cord: No Delivery of Placenta Date: 08/13/17 Delivery of Placenta Time: 08:13 - Medications Type of Anesthesia:: Spinal - Assess and Care Baby 1 Male Delivery of Infant Date: 08/13/17 Delivery of Infant Time: 08:11 at 1 minute: 9 at 5 minutes: 9 Preprinted Number On Band: [id number] Skin to Skin: Yes Mode of Transport: Bassinet - Delivery Personnel Spring Tacker: LEONARD SHAVER Nursejose antonio RN: Dyan GOTTLIEB Nursejose antonio RN: Farooq LAFLEUR RN: SAGAR JONES MD: DANNIELLE GALLARDO
[2017-08-13] MEDS ORDERED: MEPERIDINE HCL/PF INJ 25 MG/1 ML DISP.SYRIN ONE (10:39)
[2017-08-13] MEDS ORDERED: MORPHINE SULFATE 10 MG/ML INJ ONE (10:40)
--- NOTE | 2017-08-13 12:45 | OPERATIVE REPORT E ---
Operative Report NAME: TJ HARDEN : 1990 AGE: 27Y DATE OF SURGERY: 08/13/2017 ROOM: 228 PREOPERATIVE DIAGNOSIS: IUP AT TERM, WITH PRIOR . POSTOPERATIVE DIAGNOSIS: IUP AT TERM, WITH PRIOR . OPERATION: Repeat low transverse . Delivery of viable male, Apgars of 9 and 9, weight pending. SURGEON: Dyan GALLARDO M.D. ANESTHESIA: Spinal. TISSUE REMOVED OR ALTERED: Placenta. ESTIMATED BLOOD LOSS: Less than 600. PROCEDURE: Patient was placed in a supine position, rolled onto her right side, prepped and draped in sterile fashion. Pfannenstiel incision was made through the existing Pfannenstiel eschar. Incision extended through the subcutaneous tissue and fascia. Fascia divided. Rectus muscle bluntly and sharply divided. Parietal peritoneum was entered with sharp dissection. Uterus nicked in midline and extended bilaterally. was then delivered through the uterine incision. Nose and mouth suctioned with a bulb syringe. Cord was clamped. Infant was passed from the table. Placenta was manually extracted. Uterus was closed in 2 layers using 0 Vicryl running stitch, and the second layer imbricating the first. There was a small amount of bleeding noted in the mid portion, controlled with [id number]-hyyll sutures of 0 Vicryl. The fascia was closed with 0 Vicryl, and the skin was closed with subcutaneous absorbable agustin. Her urine remained clear throughout the procedure. She was taken to recovery in good condition, infant to nursery in good condition. DICTATING PHYSICIAN: Dyan GALLARDO M.D. [id number] Y#: [id number] ID: [id number] JOB#: [id number] ACCT: [id number] cc:Dyan GALLARDO M.D. >
[2017-08-13] MEDS: IBUPROFEN 800 MG TABLET PO SCH ×2 (13:22→17:11)
[2017-08-13] MEDS: OXYCODONE-ACETAMINOPHEN 5-325 MG TABLET PO PRN ×3 (13:22→22:38)
[2017-08-13] MEDS ORDERED: PHENYLEPHRINE HCL INJ/PF 10 MG/1 ML SDV ONE (16:54)
[2017-08-13] MEDS: DOCUSATE SODIUM 100 MG CAPSULE PO SCH ×2 (17:06→17:11)
[2017-08-13] MEDS: PRENATAL VITAMIN W DHA CAPSULE PO SCH (17:06)
[2017-08-14] MEDS: IBUPROFEN 800 MG TABLET PO SCH ×4 (00:06→18:23)
[2017-08-14] MEDS: OXYCODONE-ACETAMINOPHEN 5-325 MG TABLET PO PRN ×2 (05:45→14:25)
[2017-08-14 06:36] LABS: HEMOGLOBIN 11.3 g/dL (12.0-15.5); MEAN CORPUSCULAR HEMOGLOBIN 29.6 pg (27.0-33.4); MEAN CORPUSCULAR HGB CONC 34.1 g/dL (32.0-36.0); MEAN CORPUSCULAR VOLUME 87 fl (80-97); PLATELET COUNT 195 10^3/uL (150-450); RED BLOOD COUNT 3.81 10^6/uL (3.72-5.28); RED CELL DISTRIBUTION WIDTH 14.1 % (11.5-14.0); WHITE BLOOD COUNT 9.9 10^3/uL (4.0-10.5)
--- NOTE | 2017-08-14 08:48 | PDOC PROGRESS REPORT ---
Subjective-OB Progress Note for:: 08/14/17 Subjective: OOB in room, holding baby which is crying, hsb at BS, eating well, no c/o, walking to nursery Physical Exam (OB) Vital Signs: Temp Pulse Resp BP Pulse Ox 98.4 F 81 16 122/66 97 08/14/17 07:52 08/14/17 07:52 08/14/17 07:52 08/14/17 07:52 08/14/17 07:52 Intake & Output 08/13/17 08/14/17 08/15/17 06:59 06:59 06:59 Intake Total 1525 Output Total 2650 Balance -1125 Weight 88 kg - Dressing Removed: No - Medipore Clean dry and intact Incision: Dressing - Lochia Lochia Amount: Small 10-25 ml Lochia Color: Rubra/Red - Abdomen Description: Soft, Round Hernia Present: No Fundal Description: Firm, Midline Fundal Height: u/u - u/2 Objective-Diagnostic Laboratory: 08/14/17 06:25 08/14/17 06:25 WBC 9.9 RBC 3.81 Hgb 11.3 L Hct 33.0 L MCV 87 MCH 29.6 MCHC 34.1 RDW 14.1 H Plt Count 195 Assessment and Plan(PN) - Assessment and Plan (1) Delivery by section of full-term infant Is this a current diagnosis for this admission?: Yes - Time Spent with Patient Time with patient: Less than 15 minutes Medications reviewed and adjusted accordingly: Yes - Disposition Anticipated Discharge: Home Within: within 24 hours
[2017-08-14] MEDS: PRENATAL VITAMIN W DHA CAPSULE PO SCH (09:26)
[2017-08-14] MEDS: DOCUSATE SODIUM 100 MG CAPSULE PO SCH ×2 (09:26→18:23)
[2017-08-15] MEDS: IBUPROFEN 800 MG TABLET PO SCH ×2 (00:21→05:50)
--- NOTE | 2017-08-15 08:43 | PDOC PROGRESS REPORT ---
Subjective-OB Progress Note for:: 08/15/17 Subjective: Doing well, sitting on side of bed, ready to go home, hsb at BS, baby in room Physical Exam (OB) Vital Signs: Temp Pulse Resp BP Pulse Ox 98.4 F 79 16 120/75 97 08/15/17 07:37 08/15/17 07:37 08/15/17 07:37 08/15/17 07:37 08/15/17 07:37 Intake & Output 08/14/17 08/15/17 08/16/17 06:59 06:59 06:59 Intake Total 1525 750 Output Total 2650 Balance -1125 750 - Dressing Removed: - Open to air, no signs of infection Incision: Well Approximated - Lochia Lochia Amount: Scant < 10 ml Lochia Color: Rubra/Red - Abdomen Description: Tender, Soft, Round Hernia Present: No Fundal Description: Firm, Midline Fundal Height: u/u - u/2 Objective-Diagnostic Laboratory: 08/14/17 06:25 Assessment and Plan(PN) - Assessment and Plan (1) Delivery by section of full-term infant Is this a current diagnosis for this admission?: Yes - Time Spent with Patient Medications reviewed and adjusted accordingly: Yes - Disposition Anticipated Discharge: Home Within: Other - home today
--- NOTE | 2017-08-15 08:46 | PDOC DISCHARGE SUMMARY ---
Final Diagnosis Discharge Date: 08/15/17 - Final Diagnosis (1) Delivery by section of full-term infant Is this a current diagnosis for this admission?: Yes Discharge Data - Discharge Medication Prescriptions: Oxycodone HCl/Acetaminophen [Percocet 5-325 mg Tablet] 2 tab PO Q4HP PRN #20 tablet PRN Reason: Ibuprofen [Motrin 800 mg Tablet] 800 mg PO Q6 #60 tablet Home Medications: Ibuprofen [Motrin 800 mg Tablet] 800 mg PO Q6 #60 tablet 08/15/17 Oxycodone HCl/Acetaminophen [Percocet 5-325 mg Tablet] 2 tab PO Q4HP PRN #20 tablet 08/15/17 Vit/Dha [ Multi + Dha Capsule] 1 cap PO DAILY capsule Reason(s) for Admission: Ceasarean Section-Repeat Procedures: Ultrasound Intrapartum Procedure(s): : Low Cervical, Transverse - [place] Data Baby 1 Male Weight: 4.082 kg Home with Mother: Yes Complications: No - Diagnosis Test Laboratory: Temp Pulse Resp BP Pulse Ox 98.4 F 79 16 120/75 97 08/15/17 07:37 08/15/17 07:37 08/15/17 07:37 08/15/17 07:37 08/15/17 07:37 08/12/17 08/12/17 08/14/17 11:02 11:18 06:25 RBC 4.47 3.81 Hgb 13.2 11.3 L Hct 38.6 33.0 L Urine Opiates Screen NEGATIVE - Discharge information/Instructions Discharge Activity: Activity As Tolerated, No Lifting Over 10 Pounds, No Lifting /Push/Pulling, Pelvic Rest Discharge Diet: As Tolerated, Regular Disposition: HOME, SELF-CARE Follow up with: [facility] in: 1, Weeks
[2017-08-15] MEDS: PRENATAL VITAMIN W DHA CAPSULE PO SCH (10:32)
[2017-08-15] MEDS: DOCUSATE SODIUM 100 MG CAPSULE PO SCH (10:33)
[2017-08-15 11:57] VITALS: BP 111/67
== END 2017-08-15 13:20 | disposition home or self-care (01) | DRG 766 ==
LOC: 2S 05:14
PROVIDERS: ADMIT Obstetrics & Gynecology Gynecology; ATTEND Obstetrics & Gynecology Gynecology
PROC: 4A1HXCZ Monitoring of Products of Conception, Cardiac Rate, External Approach (ICD-10-PCS; 2017-08-13)
PROC: 10D00Z1 Extraction of Products of Conception, Low, Open Approach (ICD-10-PCS; principal; 2017-08-13 07:45)
DX: O32.3XX0 Maternal care for face, brow and chin presentation, not applicable or unspecified (principal); O34.211 Maternal care for low transverse scar from previous cesarean delivery; Z82.49 Family history of ischemic heart disease and other diseases of the circulatory system; Z3A.40 40 weeks gestation of pregnancy; Z37.0 Single live birth
CPT/HCPCS: 1961; 36415; 59025; 80307; 81001; 85025; 85027; 86850; 86900; 86901; 94799; J0131; J0456; J0690; J1885; J2175; J2210; J2250; J2270; J2370; J2405; J2590; J3010; J3490; J7060; J7120

== ENCOUNTER 2020-02-21 12:17 | Outpatient (CLI) | payer BC, MEDICAID ==
[2020-02-21 13:22] LABS: APPEARANCE,URINE SLIGHTLY-CLOUDY; BILIRUBIN,URINE NEGATIVE (NEGATIVE); COLOR,URINE STRAW; GLUCOSE, URINE NEGATIVE (NEGATIVE); KETONES,URINE NEGATIVE (NEGATIVE); LEUKOCYTE ESTERASE,URINE LARGE (NEGATIVE); NITRITE,URINE NEGATIVE (NEGATIVE); PROTEIN,URINE NEGATIVE (NEGATIVE); URINE SPECIFIC GRAVITY 1.005; UROBILINOGEN,URINE NEGATIVE mg/dL (<2.0)
[2020-02-21 13:59] LABS: URINE AMPHETAMINES SCREEN NEGATIVE; URINE BARBITURATES SCREEN NEGATIVE; URINE BENZODIAZEPINES SCREEN NEGATIVE; URINE COCAINE SCREEN NEGATIVE; URINE MARIJUANA (THC) SCREEN NEGATIVE; URINE METHADONE SCREEN NEGATIVE; URINE PHENCYCLIDINE SCREEN NEGATIVE
--- NOTE | 2020-02-21 14:12 | Non Stress Test Report ---
Non Stress Test Datetime Report Generated by CPN: 02/21/2020 14:12 DEMOGRAPHIC Test Number: 1 EGA NST: 34.5 INDICATION Indication for Study (NST) Other: No movement VITAL SIGNS Temperature - NST: 97.8 Pulse - NST: 96 RESP - NST: 16 NBPSYS NST: 135 NBPDIA NST: 82 MONITORING Monitor Explained: Monitor Explained; Test Explained; Patient Verbalized Understanding Time on Monitor: 02/21/2020 12:39 Time off Monitor: 02/21/2020 13:42 NST Duration: 63 NST INTERVENTIONS NST Interventions: PO Hydration; Reposition Patient Physician Notified NST: K Ghosh CNM BABY A: [id number] BABY A Movement : Absent Contraction Frequency : 0 FHR Baseline : 145 Accelerations : 15X15 Decelerations : None Variability : Moderate 6-25bpm NST Review: Meets Criteria for Reactive NST NST Review and Verified By : Kel, RN NST Results: Reactive NST REPORT Report Trigger: Send Report
== END 2020-02-21 13:54 | disposition home or self-care (01) ==
LOC: LC 12:17
PROVIDERS: ATTEND Obstetrics & Gynecology Gynecology
DX: O36.8130 Decreased fetal movements, third trimester, not applicable or unspecified (principal); R10.9 Unspecified abdominal pain; Z3A.34 34 weeks gestation of pregnancy
CPT/HCPCS: 59025; 80307; 81001; 87086

== ENCOUNTER 2020-03-11 12:00 | Outpatient (CLI) | payer BC ==
--- NOTE | 2020-03-11 12:56 | Non Stress Test Report ---
Non Stress Test Datetime Report Generated by CPN: 03/11/2020 12:55 DEMOGRAPHIC Test Number: 2 EGA NST: 37.3 INDICATION Indication for Study (NST) Other: repeat NST, nonreactive in office VITAL SIGNS Temperature - NST: 97.8 Pulse - NST: 97 RESP - NST: 16 NBPSYS NST: 122 NBPDIA NST: 72 MONITORING Monitor Explained: Monitor Explained; Test Explained; Patient Verbalized Understanding Time on Monitor: 03/11/2020 12:12 Time off Monitor: 03/11/2020 12:51 NST Duration: 39 NST INTERVENTIONS NST Interventions: PO Hydration; Reposition Patient Physician Notified NST: N [place] BABY A: [id number] BABY A Movement : Present Contraction Frequency : occasional FHR Baseline : 130 Accelerations : 15X15 Decelerations : None Variability : Moderate 6-25bpm NST Review: Meets Criteria for Reactive NST NST Results: Reactive NST REPORT Report Trigger: Send Report
[2020-03-11 13:09] LABS: APPEARANCE,URINE SLIGHTLY-CLOUDY; BILIRUBIN,URINE NEGATIVE (NEGATIVE); COLOR,URINE YELLOW; GLUCOSE, URINE NEGATIVE (NEGATIVE); KETONES,URINE NEGATIVE (NEGATIVE); LEUKOCYTE ESTERASE,URINE TRACE (NEGATIVE); NITRITE,URINE NEGATIVE (NEGATIVE); PROTEIN,URINE 30 mg/dL (NEGATIVE); URINE SPECIFIC GRAVITY 1.021; UROBILINOGEN,URINE NEGATIVE mg/dL (<2.0)
[2020-03-11 13:28] LABS: URINE AMPHETAMINES SCREEN NEGATIVE; URINE BARBITURATES SCREEN NEGATIVE; URINE BENZODIAZEPINES SCREEN NEGATIVE; URINE COCAINE SCREEN NEGATIVE; URINE MARIJUANA (THC) SCREEN NEGATIVE; URINE METHADONE SCREEN NEGATIVE; URINE PHENCYCLIDINE SCREEN NEGATIVE
--- NOTE | 2020-03-11 16:11 | PDOC H&P ---
History of Present Illness Admission Date/PCP: NESHA AKINS MD History of Present Illness: TJ HARDEN is a 29 year old female pt here from the Office for Rpt NST at 37 wks Past Surgical History Past Surgical History: Reports: Section - 2014 Social History Information Source: Patient Lives with: Family Smoking Status: Never Smoker Electronic Cigarette use?: No - Advance Directive Resuscitation Status: Full Code Family History Family History: None Parental Family History Reviewed: Yes Children Family History Reviewed: NA Sibling(s) Family History Reviewed.: NA Medication/Allergy Home Medications: Vit/Dha [ Multi + Dha Capsule] 1 cap PO DAILY capsule 08/15/17 Allergies/Adverse Reactions: No Known Allergies Allergy (Verified 03/11/20 12:09) Physical Exam - Physical Exam Vital Signs: Intake & Output 03/10/20 03/11/20 03/12/20 06:59 06:59 06:59 Weight 101 kg Result Laboratory Results: 03/11/20 12:07 Urine Color YELLOW Urine Appearance SLIGHTLY-CLOUDY Urine pH 6.0 Ur Specific [place] 1.021 Urine Protein 30 H Urine Glucose (UA) NEGATIVE Urine Ketones NEGATIVE Urine Blood NEGATIVE Urine Nitrite NEGATIVE Ur Leukocyte Esterase TRACE H Assessment & Plan - Time Critical Time spent with patient: Less than 15 minutes Medications reviewed and adjusted accordingly: Yes Anticipated Discharge Disposition: Home, Self Care Anticipated Discharge Timeframe: today - Plan Summary Plan Summary: D/c home. F/up with [facility] for next Ob appiontment
== END 2020-03-11 12:55 | disposition home or self-care (01) ==
LOC: LC 12:00
PROVIDERS: ATTEND Student in an Organized Health Care Education/Training Program
DX: O47.1 False labor at or after 37 completed weeks of gestation (principal); Z3A.37 37 weeks gestation of pregnancy
CPT/HCPCS: 59025; 80307; 81005

== ENCOUNTER 2020-03-24 08:59 | Inpatient (IN) | payer BC ==
[2020-03-24] MEDS ORDERED: CITRIC ACID/SODIUM CITRATE ORAL SOLN 15 ML UDCUP ONE (09:09)
[2020-03-24] MEDS ORDERED: CEFAZOLIN 2 GM/D5W RTU 2 GM/50 ML RTUPB IV ONE (09:10)
[2020-03-24] MEDS ORDERED: RINGERS SOLUTION,LACTATED 500 ML IV ONE (09:25)
[2020-03-24] MEDS ORDERED: RINGERS SOLUTION,LACTATED 1,000 ML IV ONE (09:25)
[2020-03-24 09:37] LABS: APPEARANCE,URINE SLIGHTLY-CLOUDY; BILIRUBIN,URINE NEGATIVE (NEGATIVE); COLOR,URINE YELLOW; GLUCOSE, URINE NEGATIVE (NEGATIVE); KETONES,URINE NEGATIVE (NEGATIVE); LEUKOCYTE ESTERASE,URINE NEGATIVE (NEGATIVE); NITRITE,URINE NEGATIVE (NEGATIVE); PROTEIN,URINE NEGATIVE (NEGATIVE); URINE SPECIFIC GRAVITY 1.008; UROBILINOGEN,URINE NEGATIVE mg/dL (<2.0)
[2020-03-24] MEDS ORDERED: PENICILLIN G-K 5 MILLION UNIT VIAL ONE (09:38)
--- NOTE | 2020-03-24 09:40 | Admission Physical ---
Datetime Report Generated by CPN: 03/24/2020 09:40 CURRENT ADMISSION Chief Complaint: Uterine Contractions; Suspected Ruptured Membranes Indication for Induction: Not Applicable Admit Impression : Term, Intrauterine ; Active Labor; Ruptured Membranes; Repeat Section Admit Plan: Admit to Unit; Initiate Section Protocol ALLERGIES Medication Allergies: No Medication Allergies: No Known Allergies (03/11/2020) Latex: No Latex Allergies OBSTETRICAL HISTORY EDC: 03/29/2020 00:00 : 4 Para: 2 Term: 1 : 1 Livin Gestational Diabetes: No Rh Sensitization: No Incompetent Cervix: No MAHOGANY: No Infertility: No ART Treatment: No Uterine Anomaly: No IUGR: No Hx Previous C/S: No Macrosomia: No Hx Loss/Stillborn: No PIH: No Hx : No Placenta Previa/Abruption: No Depression/PP Depression: No PTL/PROM: No Post Hemorrhage: No Current Procedures: Ultrasound; NST Obstetrical History Comments: G1-c/section 36 weeks G2-C/section 32 weeks G3-Current MEDICAL HISTORY Diabetes: No Blood Transfusion: No Pulmonary Disease (Asthma, TB): No Breast Disease: No Hypertension: No Case Investigator Surgery: No Heart Disease: No Hosp/Surgery: No Autoimmune Disorder: No Anesthetic Complications: No Kidney Disease: No Abnormal Pap Smear: No Neuro/Epilepsy: No Psychiatric Disorders: No Other Medical Diseases: No Hepatitis/Liver Disease: No Significant Family History: No Trauma/Violence : No PHYSICAL EXAM General: Normal HEENT: Normal Neurologic: Normal Thyroid: Deferred Heart: Normal Lungs: Normal Breast: Deferred Back: Normal Abdomen: Normal Genitourinary Exam: Normal Extremities: Normal DTRs: Normal Pelvic Type: Adequate Vital Signs: Reviewed VAGINAL EXAM Dilatation: 3 Effacement: 70 Station: -2 Contraction Comments: Q 2-3 MEMBRANES Membranes: Ruptured Amniotic Fluid Color: Clear FETUS A EGA: 39.2 Monitoring: External US FHR- Baseline: 145 Variability: Minimal - Undetectable to <=5bpm Accelerations: 15X15 Decelerations: None FHR Category: Category I Presentation: Vertex Admit Comment: 29yo at 39+2ega presents with SROM and gross meconium. h/o PPROM and PTD at 35wks - baby did not survive. Rubella NI. possible accessory lobe to placenta. GBS pos - PCN ordered for now. Failed 1 hr GTT - passed 3 hr GTT. Pt did attend her Preop at [facility] on 03/19 but there is no encounter for 03/20 at [facility] - no labs and no COVID testing available. Admit to labor and delivery for active labor and SROM and proceed with Repeat section. She declines BTL. unsure of contraceptive choice. INFORMED CONSENT Informed Consent Obtained: Vaginal Delivery; Risks, Benefits and Alternatives Discussed Signature: with User ID: [email or web address]
[2020-03-24] MEDS ORDERED: PENICILLIN G POTASSIUM 5,000,000 UNIT in DEXTROSE 5%-WATER 100 ML IV ONE (09:45)
[2020-03-24] MEDS ORDERED: OXYTOCIN/0.9 % SODIUM CHLORIDE 30 UNIT/500 ML RTUINJ ONE (09:56)
[2020-03-24] MEDS ORDERED: FENTANYL CITRATE INJ/PF 100 MCG/2 ML AMPUL ONE (09:56)
[2020-03-24] MEDS ORDERED: MIDAZOLAM 2 MG/2 ML INJ ONE (09:56)
[2020-03-24] MEDS ORDERED: EPHEDRINE SULFATE INJ 50 MG/1 ML AMPULE ONE (09:56)
[2020-03-24] MEDS ORDERED: KETOROLAC TROMETHAMINE INJ/PF 30 MG/1 ML SDV ONE ×2 (09:56→20:55)
[2020-03-24] MEDS ORDERED: OXYTOCIN 10 UNIT/ML VIAL ONE (09:56)
[2020-03-24] MEDS ORDERED: ONDANSETRON HCL INJ/PF 4 MG/2 ML SDV ONE (09:57)
[2020-03-24] MEDS ORDERED: ACETAMINOPHEN 1,000 MG/100 ML RTUPB IV ONE (09:57)
[2020-03-24 10:04] LABS: URINE AMPHETAMINES SCREEN NEGATIVE; URINE BARBITURATES SCREEN NEGATIVE; URINE BENZODIAZEPINES SCREEN NEGATIVE; URINE COCAINE SCREEN NEGATIVE; URINE MARIJUANA (THC) SCREEN NEGATIVE; URINE METHADONE SCREEN NEGATIVE; URINE PHENCYCLIDINE SCREEN NEGATIVE
[2020-03-24 10:06] LABS: ABSOLUTE EOSINOPHILS # (AUTO) 0.1 10^3/uL (0.0-0.6); ABSOLUTE LYMPHOCYTES (AUTO) 2.2 10^3/uL (0.5-4.7); ABSOLUTE MONOCYTES (AUTO) 0.5 10^3/uL (0.1-1.4); ABSOLUTE NEUT (AUTO) 5.2 10^3/uL (1.7-8.2); BASOPHILS % (AUTO) 0.4 % (0-2); EOSINOPHILS % (AUTO) 0.9 % (0-6); HEMATOCRIT 34.9 % (36.0-47.0); HEMOGLOBIN 11.7 g/dL (12.0-15.5); LYMPHOCYTES % (AUTO) 27.3 % (13-45); MEAN CORPUSCULAR HGB CONC 33.7 g/dL (32.0-36.0); MEAN CORPUSCULAR VOLUME 80 fl (80-97); MONOCYTES % (AUTO) 6.5 % (3-13); PLATELET COUNT 204 10^3/uL (150-450); RED BLOOD COUNT 4.35 10^6/uL (3.72-5.28); RED CELL DISTRIBUTION WIDTH 14.1 % (11.5-14.0); SEGMENTED NEUTROPHILS % (AUTO) 64.9 % (42-78); TOTAL CELLS COUNTED % (AUTO) 100 %
[2020-03-24] MEDS ORDERED: ACETAMINOPHEN 650 MG SUPP.RECT PR PRN (11:44)
[2020-03-24] MEDS ORDERED: OXYTOCIN/0.9 % SODIUM CHLORIDE 30 UNIT/500 ML RTUINJ IV PRN (11:44)
[2020-03-24] MEDS ORDERED: DIPHENHYDRAMINE HCL 25 MG CAPSULE PO PRN (11:44)
[2020-03-24] MEDS ORDERED: ACETAMINOPHEN WITH CODEINE #3 TABLET PO PRN (11:44)
[2020-03-24] MEDS ORDERED: DIPH/PERTUSS(ACELL)/TETANUS VAC/PF 0.5 ML SYR (>=10YO) IM PRN (11:44)
[2020-03-24] MEDS ORDERED: MAG HYDROX/AL HYDROX/SIMETH SUSP 30 ML UDCUP PO PRN (11:44)
[2020-03-24] MEDS ORDERED: MAGNESIUM HYDROXIDE SUSP 30 ML UDCUP PO PRN (11:44)
[2020-03-24] MEDS ORDERED: PSEUDOEPHEDRINE HCL 30 MG TABLET PO PRN (11:44)
[2020-03-24] MEDS ORDERED: GLYCERIN/WITCH HAZEL LEAF 1 EACH MED..WIPE TP PRN (11:44)
[2020-03-24] MEDS ORDERED: FAMOTIDINE 20 MG TABLET PO PRN (11:44)
[2020-03-24] MEDS ORDERED: ZOLPIDEM TARTRATE 5 MG TABLET PO PRN (11:44)
[2020-03-24] MEDS ORDERED: MEASLES,MUMPS&RUBELLA VACC/PF 0.5 ML VIAL SUBCUT PRN (11:44)
[2020-03-24] MEDS ORDERED: DIBUCAINE 1% OINTMENT 28 GM TP PRN (11:44)
[2020-03-24] MEDS ORDERED: BENZOCAINE/MENTHOL AEROSOL SPRAY 56 ML TOP PRN (11:44)
[2020-03-24] MEDS ORDERED: VARICELLA VACC/PF (1350 UNIT/0.5 ML) 0.5 ML VIAL SUBCUT PRN (11:44)
[2020-03-24] MEDS ORDERED: ACETAMINOPHEN 325 MG TABLET PO PRN (11:44)
--- NOTE | 2020-03-24 11:52 | Brief Operative Note ---
BRIEF OPERATIVE REPORT DATE OF SURGERY: 03/24/20 TIME OF SURGERY: 11:40 PREOPERATIVE DIAGNOSIS: 39+2ega, , H/o IUFD at 35wks, SROM, Active labor, meconium POSTOPERATIVE DIAGNOSIS: TRUPTI - double nuchal cord SURGEON: NESHA AKINS FINDINGS: VMI delivered at 1101, Apgars 8/9, weight 9#3oz, small anterior uterine fibroid, uterine lower segment so thin that no uterine incision needed. QBL pending, IVF 1200ml, UOP 600ml COMPLICATIONS: None ESTIMATED BLOOD LOSS: 600 TISSUE REMOVED OR ALTERED: placenta and cord sent TECHNICAL PROCEDURE: Scar revision, Repeat section
--- NOTE | 2020-03-24 11:53 | Operative Report ---
Operative Report DATE OF SURGERY: 03/24/20 PREOPERATIVE DIAGNOSIS: , 39+2ega, h/o 2 sections, Rubella NI, GBS positive bacteriuria, possible macrosomia, thickened prior scar POSTOPERATIVE DIAGNOSIS: TRUPTI - delivered OPERATION: Repeat section, Scar revision SURGEON: NESHA AKINS ANESTHESIA: Spinal TISSUE REMOVED OR ALTERED: placenta and cord sent to pathology COMPLICATIONS: None ESTIMATED BLOOD LOSS: 600 QUANTITATIVE BLOOD LOSS: 240 INTRAOPERATIVE FINDINGS: VMI delivered at 1101, Apgars 8/9, weight 9#3oz, double nuchal cord and meconium noted. small anterior uterine fibroid, uterine lower segment so thin that no uterine incision needed. reviewed with patient to delay further for at least 18 months. QBL pending, IVF 1200ml, UOP 600ml PROCEDURE: Anesthesia provider: [Tree Holt CRNA] Urine output: [600ml] IV fluids: [1200ml] Indications: [29yo at 39+2ega presents with increasing regular contractions and positive SROM. She has a history of section in [address] [facility] at 35 weeks and the baby . She then had an uncomplicated section in 2018. She declines BTL. She desires repeat section and was counseled on the risks, benefits, alternatives of repeat section.] Procedure: The patient was taken to the operating room where spinal anesthesia was obtained and found to be adequate. She was then prepped and draped in the normal sterile fashion and placed in the dorsal supine position with a leftward tilt. A Pfannenstiel skin incision was then made and carried through to the underlying layers of the fascia with the scalpel. The fascia was incised in the midline and the incision extended laterally with the Blanchard scissors. The superior aspect of the fascial incision was then grasped with Gricel clamps elevated and the underlying rectus muscles dissected off [bluntly]. Attention was then turned to the inferior aspect of the fascial incision which in a similar fashion was grasped, tented up with Gricel clamps, and the rectus muscles dissected off [bluntly]. The rectus muscles were then in the midline and the peritoneum at the amount identified and entered [bluntly]. The peritoneal incision was then extended superiorly and inferiorly with good visualization of the bladder. The bladder blade was inserted and the vesicouterine peritoneum identified grasped with [place] pickups and entered sharply with the Metzenbaum scissors. This incision was then extended laterally with the Metzenbaum scissors and a bladder flap created digitally. The bladder blade was then reinserted and the lower uterine segment opened easily with a hemostat and this was extended in a transverse fashion with the scalpel. The uterine incision was then extended bluntly. The bladder blade was removed and the infant's head was delivered from cephalic presentation atraumatically. The nose and mouth were suctioned and the cord doubly clamped and cut. And the infant was handed off to waiting pediatricians. The placenta was then delivered spontaneously and the uterus exteriorized and cleared of all clots and debris. The uterine incision was then repaired with 1- 0 Vicryl in a running locked fashion. A second layer of the same suture was used to obtain hemostasis via imbrication of the initial layer. The bladder flap was then repaired with 3-0 chromic in a running fashion. The uterus was returned to the patient's abdomen and Interceed was placed overlying the uterine incision to prevent adhesions. The gutters were cleared of all clots and debris. All operative sites were noted to be hemostatic. The fascia was reapproximated with 0 Vicryl in a running fashion from each lateral edge to the midline. The skin was closed with 3-0 Monocryl in a running subcuticular fashion with overlying Dermabond for additional dressing as well as wound closure. The patient tolerated the procedure well. Sponge lap needle and instrument counts are correct times 2. 2 g of Ancef were given prior to skin incision. The patient was taken to the recovery area awake and in stable condition.
[2020-03-24] MEDS ORDERED: PENICILLIN G POTASSIUM 2,500,000 UNIT in DEXTROSE 5%-WATER 50 ML IV SCH (13:45)
--- NOTE | 2020-03-24 14:15 | Birth Certificate Data ---
Cert Data Datetime Report Generated by CPN: 03/24/2020 14:15 CERTIFICATE DATA Delivery Provider: Mimi Estrada MD (03/24/2020 10:56:Magdaleno Ford RN) 47a. Care: Yes (02/21/2020 12:42:Roro Calero RN) 47b. Date of First Visit: 09/18/2019 00:00 (02/21/2020 12:42:Roro Calero RN) 47c. Date of Last Visit: 03/19/2020 00:00 (02/21/2020 12:42:Roro Calero RN) 47d. Number of Visits: 9 (02/21/2020 12:42:Roro Calero RN) 48a. Number of Prev Live Births: 2 (02/21/2020 12:42:Magdaleno Ford RN) 48b. Now Livin (02/21/2020 12:42:Charlotte Mathews RN) 48c. Live Births Now : 1 (02/21/2020 12:42:QS system process) 48d. Date of Last Live : 08/13/2017 00:00 (02/21/2020 12:42:Magdaleno Ford RN) 48e. Losses: 0 (02/21/2020 12:42:Magdaleno Ford RN) RISK FACTORS IN THIS 49a. Diabetes: No (02/21/2020 12:42:Rossana Perez RN) 49b. Hypertension: No (02/21/2020 12:42:Rossana Perez RN) 49c. Previous Births: 1 (02/21/2020 12:42:Charlotte Mathews RN) 49d. Stillborns: No (02/21/2020 12:42:Rossana Perez RN) 49d. IUGR: No (02/21/2020 12:42:Rossana Perez RN) 49e. Infertility Treatment: No (02/21/2020 12:42:Rossana Perez RN) 49f. Previous Cesareans: 2 (02/21/2020 12:42:Magdaleno Ford RN) Mother's Height 50b. Height Inches: 66 (03/24/2020 10:01:QS system process) Mother's Weight 51a. Pre- Weight (lbs): 170 (02/21/2020 12:42:Roro Calero RN) 51b. Weight at Delivery (lbs): 224 (03/24/2020 13:18:QS system process) 52. Dt Last Normal Menses Began: 06/23/2019 00:00 (02/21/2020 12:42:Charlotte Mathews RN) Infections Present/Treated 53a. Gonorrhea: No (02/21/2020 12:42:Magdaleno Ford RN) Results this Hospital Visit : Negative (02/21/2020 12:42:Roro Calero RN) 53b. Syphilis: No (02/21/2020 12:42:Magdaleno Ford RN) 53c. Chlamydia: No (02/21/2020 12:42:Magdaleno Ford RN) Results this Hospital Visit: Negative (02/21/2020 12:42:Roro Calero RN) 53d. Hepatitis B: No (02/21/2020 12:42:Magdaleno Ford RN) Results this Hospital Visit: Negative (02/21/2020 12:42:Roro Calero RN) 53h. Mother Tested for HBsAG: Yes (02/21/2020 12:42:Roro Calero RN) 53i. Date Tested: 09/18/2019 00:00 (02/21/2020 12:42:Roro Calero RN) 53j. Test Result: Negative (02/21/2020 12:42:Roro Calero RN) Obstetric Procedures 54a, b, c. Obstetric Procedures: Ultrasound; NST (02/21/2020 12:42:Rossana Perez RN) Cigarette Smoking Cigarette Smoking: Never Smoker. [id number] (02/21/2020 12:42:Roro Calero RN) 55a. 3 Months Before Preg - Ci (02/21/2020 12:42:Magdaleno Ford RN) 55a. Packs: 0 (02/21/2020 12:42:Magdaleno Ford RN) 55b. 1st Trimester of Preg- Ci (02/21/2020 12:42:Magdaleno Ford RN) 55b. Packs: 0 (02/21/2020 12:42:Magdaleno Ford RN) 55c. 2nd Trimester of Preg- Ci (02/21/2020 12:42:Magdaleno Ford RN) 55c. Packs: 0 (02/21/2020 12:42:Magdaleno Ford RN) 55d. 3rd Trimester of Preg- Ci (02/21/2020 12:42:Magdaleno Ford RN) 55d. Packs: 0 (02/21/2020 12:42:Magdaleno Ford RN) Onset of Labor 56a. PROM >12 Hrs: 2.52 (02/21/2020 12:42:QS system process) 56b. Precipitous Labor <3 Hrs: 2 (02/21/2020 12:42:QS system process) 56c. Prolonged Labor > 20 Hrs: 2 (02/21/2020 12:42:QS system process) 57a. Induction of Labor: N/A (02/21/2020 12:42:Magdaleno Ford RN) 57c. Non-Vertex Presentation A: Vertex (02/21/2020 12:42:Magdaleno Ford RN) 57d. Steroids - Lung Mat: None (02/21/2020 12:42:Magdaleno Ford RN) 57d. Steroids - Lung Mat: Not Applicable (02/21/2020 12:42:Magdaleno Ford RN) 57e. Antibiotics During Labor: 03/24/2020 09:41 (02/21/2020 12:42:Magdaleno Ford RN) 57g. Moderate/Heavy Meconium: Moderate Meconium (03/24/2020 09:17:Magdaleno Ford RN) 57h. Intolerance of Labor: Repeat Section (02/21/2020 12:42:Magdaleno Ford RN) : N/A (02/21/2020 12:42:Magdaleno Ford RN) 57i. Epidural/Spinal Anesthesia: Intrathecal (02/21/2020 12:42:Magdaleno Ford RN) Method of Delivery 58a. Forceps - Unsuccessful A: N/A (02/21/2020 12:42:Magdaleno Ford RN) 58b. Vacuum - Unsuccessful A: N/A (02/21/2020 12:42:Magdaleno Ford RN) 58c. Presentation at 58c. Presentation at - A : Vertex (02/21/2020 12:42:Magdaleno Ford RN) 58c. Presentation at - A : N/A (02/21/2020 12:42:Magdaleno Ford RN) 58c. Presentation at - A : Cephalic (02/21/2020 12:42:Magdaleno Ford RN) Final Route and Method of Del 58d. Baby A Route/Delivery: (02/21/2020 12:42:Magdaleno Ford RN) 58e. Trial of Labor Attempted: No (02/21/2020 12:42:Magdaleno Ford RN) 58e. Trial of Labor Attempted A: N/A (02/21/2020 12:42:Magdaleno Ford RN) 58e. Trial of Labor Attempted B: N/A (02/21/2020 12:42:Magdaleno Ford RN) Maternal Morbidity 59b. 3rd or 4th Degree Lacs: None (02/21/2020 12:42:Magdaleno Ford, RN) Birthweight Baby A: 4170 (02/21/2020 12:42:Magdaleno Ford RN) 60a. Pounds : 9 (02/21/2020 12:42:QS system process) 60b. Ounces: 3 (02/21/2020 12:42:QS system process) 61. GA at Delivery Baby A: 39.2 (02/21/2020 12:42:Magdaleno Ford RN) : Full Term- 39- 40.6 Weeks (02/21/2020 12:42:QS system process) 62a. 5 Minute Baby A: 9 (02/21/2020 12:42:QS system process)
--- NOTE | 2020-03-24 14:16 | Delivery Summary ---
Del Sum A-C Datetime Report Generated by CPN: 03/24/2020 14:16 DELIVERY PERSONNEL DELIVERY PERSONNEL: [id number] Delivery Doctor:: Mimi Estrada MD PUBLIC RELATIONS WRITER:: Tree Holt CRNA Labor and Delivery Nurse:: Magdaleno Ford RN Neonatal Nurse Practitioner:: MIKALA Saeed Nursery Nurse:: Diamond Flynn RN Clinical Data Management Director/SCHOOL BUS MECHANIC: Nakia Sarkar CST Clinical Data Management Director/SCHOOL BUS MECHANIC: Anju Matt, INFORMATION TECHNOLOGY ADVISOR MATERNAL INFORMATION Delivery Anesthesia: Spinal Medications After Delivery: Pitocin 30 Units in 500ml NS/D5W Delivery QBL: 240 Maternal Complications: None LABOR SUMMARY EDC: 03/29/2020 00:00 No. Babies in Womb: 1 Attempted: No Labor Anesthesia: Intrathecal LABOR INFORMATION Reason for Induction: Not Applicable Onset of Labor: 03/24/2020 08:30 Oxytocin: N/A Group B Beta Strep: positive Antibiotics # of Doses: 1 Antibiotics Time of Last Dose: 03/24/2020 09:41 Name of Antibiotic Given: penicillin Steroids Given: None Reason Steroids Not Administered: Not Applicable MEMBRANES Membranes Rupture Method: Spontaneous Rupture of Membranes: 03/24/2020 08:30 Length of Rupture (hr): 2.52 Amniotic Fluid Color: Moderate Meconium Amniotic Fluid Amount: Moderate Amniotic Fluid Odor: Normal STAGES OF LABOR Stage 3 hr: 0 Stage 3 min: 2 Total Time in Labor hr: 2 Total Time in Labor min: 33 VAGINAL DELIVERY Episiotomy: None Laceration #1: None Laceration Extension #1: N/A Laceration Repair: Not Applicable Sponge Count Correct: N/A Sharps Count Correct: N/A CSECTION DELIVERY Primary Indication: Repeat Section Secondary Indication: N/A CSection Urgency: Non-Scheduled CSection Incidence: Repeat Labor: N/A Elective: Elective CSection Incision: Lower Uterine Transverse BABY A INFORMATION Delivery Date/Time: 03/24/2020 11:01 Method of Delivery: Nurse Controlled Delivery: No Born in Route : No : N/A Forceps: N/A Vacuum Extraction: N/A Shoulder Dystocia : No PRESENTATION/POSITION BABY A Presentation: Cephalic Cephalic Presentation: Vertex Breech Presentation: N/A PLACENTA INFORMATION BABY A Placenta Delivery Time : 03/24/2020 11:03 Placenta Method of Delivery: Expressed Placenta Status: Delivered SCORES BABY A Heart Rate 1 min: >100 bpm Resp Effort 1 min: Good Cry Reflex Irritability 1 min: Cough or Sneeze or Pulls Away Muscle Tone 1 min: Active Motion Color 1 min: Body [place], Extremities Blue Resuscitation Effort 1 min: Tactile Stimulation SCORE 1 MIN: 9 Heart Rate 5 min: >100 bpm Resp Effort 5 min: Good Cry Reflex Irritability 5 min: Cough or Sneeze or Pulls Away Muscle Tone 5 min: Active Motion Color 5 min: Body [place], Extremities Blue SCORE 5 MIN: 9 INFORMATION BABY A Gestational Age at Delivery: 39.2 Gestational Status: Full Term- 39- 40.6 Weeks Infant Outcome : Liveborn Condition : Stable Sex: Male IDENTIFICATION BABY A Infant Verification Date/Time: 03/24/2020 11:48 ID Band Number: [id number] Mother's Name Verified: Yes RN Verifying Infant: TMartin,RNC Additional Verifying Personnel: LILLY Bautista WEIGHT/LENGTH BABY A Birthweight (gm): 4170 Weight (lb): 9 Infant Weight (oz): 3 Infant Length (in): 22.00 Infant Length (cm): 55.88 CORD INFORMATION BABY A No. Cord Vessels: 3 Nuchal Cord : Around Neck x2, Loose Cord Blood Taken: Yes-For Storage (Mom's Blood type +) Infant Suction: None ASSESSMENT BABY A Complications: None Skin to Skin: No Infant Care By: KWilliams,RN BABY B INFORMATION : N/A
[2020-03-24] MEDS: IBUPROFEN 800 MG TABLET PO SCH ×2 (15:16→21:05)
[2020-03-24] MEDS: ACETAMINOPHEN WITH CODEINE #3 TABLET PO PRN (15:46)
[2020-03-24] MEDS ORDERED: ACETAMINOPHEN 1,000 MG/100 ML RTUPB IV PRN (16:18)
[2020-03-24] MEDS ORDERED: PROMETHAZINE HCL INJ 25 MG/1 ML VIAL IV PRN (16:18)
[2020-03-24] MEDS ORDERED: OXYCODONE-ACETAMINOPHEN 5-325 MG TABLET PO PRN (16:18)
[2020-03-24] MEDS ORDERED: RINGERS SOLUTION,LACTATED 1,000 ML IV PRN (16:18)
[2020-03-24] MEDS ORDERED: HYDROMORPHONE HCL INJ/PF 2 MG/ML AMPULE IV PRN (16:18)
[2020-03-24] MEDS: DOCUSATE SODIUM 100 MG CAPSULE PO SCH ×2 (18:27)
[2020-03-24] MEDS: FERROUS SULFATE 325 MG TABLET PO SCH (18:27)
[2020-03-24] MEDS: OXYCODONE-ACETAMINOPHEN 5-325 MG TABLET PO PRN (21:06)
[2020-03-24] MEDS: KETOROLAC TROMETHAMINE INJ/PF 30 MG/1 ML SDV IV SCH (21:07)
[2020-03-25] MEDS: OXYCODONE-ACETAMINOPHEN 5-325 MG TABLET PO PRN ×4 (02:45→22:54)
[2020-03-25] MEDS: SIMETHICONE 80 MG TAB.CHEW PO PRN ×2 (03:08→15:07)
[2020-03-25] MEDS: IBUPROFEN 800 MG TABLET PO SCH ×3 (05:49→21:37)
[2020-03-25 06:34] LABS: HEMATOCRIT 32.5 % (36.0-47.0); HEMOGLOBIN 10.9 g/dL (12.0-15.5); MEAN CORPUSCULAR HEMOGLOBIN 27.3 pg (27.0-33.4); MEAN CORPUSCULAR HGB CONC 33.5 g/dL (32.0-36.0); MEAN CORPUSCULAR VOLUME 82 fl (80-97); PLATELET COUNT 193 10^3/uL (150-450); RED BLOOD COUNT 3.99 10^6/uL (3.72-5.28); RED CELL DISTRIBUTION WIDTH 14.2 % (11.5-14.0); WHITE BLOOD COUNT 10.3 10^3/uL (4.0-10.5)
[2020-03-25] MEDS: KETOROLAC TROMETHAMINE INJ/PF 30 MG/1 ML SDV IV SCH ×3 (07:36→22:12)
--- NOTE | 2020-03-25 09:36 | PDOC PROGRESS REPORT ---
Subjective-OB Progress Note for:: 03/25/20 - POD #1, s/p Rpt , UOB, voiding, doing well, no complaints. A+, Rubella Non-immune, Physical Exam (OB) Vital Signs: Temp Pulse Resp BP Pulse Ox 97.9 F 73 16 125/68 96 03/25/20 07:27 03/25/20 07:27 03/25/20 07:27 03/25/20 07:27 03/25/20 07:27 Intake & Output 03/24/20 03/25/20 03/26/20 06:59 06:59 06:59 Intake Total 800 Output Total 2550 Balance -1750 Weight 101.7 kg - General General Appearance: Appears well, Alert In distress: None - PIH/Pre-Eclampsia DTR's: 1 + Clonus: Negative Headache: Absent Epigastric Pain: No Visual Changes: No - Dressing Removed: Yes Incision: Well Approximated Closure Type: Surgical Glue - Maternal Morbidity 59. Maternal Morbidity (serious complications experinced by the mother associated with labor and delivery: None of the above - Lochia Lochia Amount: Small 10-25 ml Lochia Color: Rubra/Red - Abdomen Description: Tender, Soft, Round Hernia Present: No Fundal Description: Firm, Midline Fundal Height: u/u - u/2 - Respiratory Respiratory Status: No respiratory distress Breath sounds: Clear - Cardiovascular Rhythm: Regular Heart Sounds: Normal auscultation - Abdominal Distension: No distension - Genitourinary Genitourinary Note: voiding - Extremities Upper extremity: Normal inspection Lower extremities: Edema - Neurological Cognition: Normal Orientation: AAOx4 - Psychological Associated symptoms: Normal affect, Normal mood - Skin Skin Temperature: Warm Skin Moisture: Dry Objective-Diagnostic Laboratory: 03/25/20 05:54 03/24/20 03/24/20 03/24/20 09:10 09:37 09:37 WBC 8.0 RBC 4.35 Hgb 11.7 L Hct 34.9 L MCV 80 MCH 27.0 MCHC 33.7 RDW 14.1 H Plt Count 204 Seg Neutrophils % 64.9 Urine Color YELLOW Urine Appearance SLIGHTLY-CLOUDY Urine pH 7.0 Ur Specific [place] 1.008 Urine Protein NEGATIVE Urine Glucose (UA) NEGATIVE Urine Ketones NEGATIVE Urine Blood NEGATIVE Urine Nitrite NEGATIVE Ur Leukocyte Esterase NEGATIVE Blood Type A POSITIVE Antibody Screen NEGATIVE 03/25/20 05:54 WBC 10.3 RBC 3.99 Hgb 10.9 L Hct 32.5 L MCV 82 MCH 27.3 MCHC 33.5 RDW 14.2 H Plt Count 193 Seg Neutrophils % Urine Color Urine Appearance Urine pH Ur Specific [place] Urine Protein Urine Glucose (UA) Urine Ketones Urine Blood Urine Nitrite Ur Leukocyte Esterase Blood Type Antibody Screen Assessment and Plan(PN) - Assessment and Plan (1) Carrier of group B Streptococcus Is this a current diagnosis for this admission?: Yes (2) Previous section Is this a current diagnosis for this admission?: Yes (3) S/P repeat low transverse Is this a current diagnosis for this admission?: Yes Plan:: Routine PP orders and post op orders, ambulation encouraged. - Time Spent with Patient Time with patient: Less than 15 minutes Medications reviewed and adjusted accordingly: Yes - Disposition Anticipated Discharge Disposition: Home, Self Care Anticipated Discharge Timeframe: within 48 hours
[2020-03-25] MEDS: PRENATAL VITAMIN W DHA CAPSULE PO SCH ×2 (11:24)
[2020-03-25] MEDS: DOCUSATE SODIUM 100 MG CAPSULE PO SCH ×4 (11:25→17:45)
[2020-03-25] MEDS: FERROUS SULFATE 325 MG TABLET PO SCH ×2 (11:30→17:44)
[2020-03-25] MEDS: SENNOSIDES/DOCUSATE 8.6-50 MG 1 EACH TABLET PO SCH (11:31)
[2020-03-26] MEDS: OXYCODONE-ACETAMINOPHEN 5-325 MG TABLET PO PRN ×2 (04:40→09:10)
[2020-03-26] MEDS: IBUPROFEN 800 MG TABLET PO SCH ×3 (06:17→21:37)
[2020-03-26] MEDS: KETOROLAC TROMETHAMINE INJ/PF 30 MG/1 ML SDV IV SCH ×3 (06:19→21:10)
[2020-03-26] MEDS: FERROUS SULFATE 325 MG TABLET PO SCH ×2 (09:11→17:44)
[2020-03-26] MEDS: PRENATAL VITAMIN W DHA CAPSULE PO SCH ×2 (09:12)
[2020-03-26] MEDS: DOCUSATE SODIUM 100 MG CAPSULE PO SCH ×4 (09:12→21:09)
[2020-03-26] MEDS: SENNOSIDES/DOCUSATE 8.6-50 MG 1 EACH TABLET PO SCH (09:13)
[2020-03-26] MEDS: SIMETHICONE 80 MG TAB.CHEW PO PRN ×2 (09:55→17:43)
--- NOTE | 2020-03-26 11:58 | PDOC PROGRESS REPORT ---
Subjective-OB Progress Note for:: 03/26/20 Subjective: states pain is not controlled and is not passing gas. RN notified and will give simethicone Physical Exam (OB) Vital Signs: Temp Pulse Resp BP Pulse Ox 98.1 F 88 16 138/74 H 98 03/26/20 11:07 03/26/20 11:07 03/26/20 11:07 03/26/20 11:07 03/26/20 11:07 Intake & Output 03/25/20 03/26/20 03/27/20 06:59 06:59 06:59 Intake Total 800 1600 200 Output Total 2550 Balance -1750 1600 200 Weight 101.7 kg - Incision: Well Approximated Closure Type: Surgical Glue - Maternal Morbidity 59. Maternal Morbidity (serious complications experinced by the mother associ ated with labor and delivery: None of the above - Abdomen Description: Tender Hernia Present: No Bowel Sounds: Hyperactive Fundal Description: Firm Describe if Not Midline: unable to assess, pt refused fundal rub Fundal Height: u/u - u/2 - Abdominal Inspection: Normal Distension: No distension - Extremities Lower extremities: Germaine's sign - neg Calf: Normal, Nontender Objective-Diagnostic Laboratory: 03/25/20 05:54 Assessment and Plan(PN) - Time Spent with Patient Time with patient: Less than 15 minutes Medications reviewed and adjusted accordingly: Yes - Disposition Anticipated Discharge Disposition: Home with Home Health Anticipated Discharge Timeframe: within 24 hours
[2020-03-26] MEDS: ACETAMINOPHEN WITH CODEINE #3 TABLET PO PRN (17:44)
[2020-03-27] MEDS: OXYCODONE-ACETAMINOPHEN 5-325 MG TABLET PO PRN (03:25)
[2020-03-27] MEDS: KETOROLAC TROMETHAMINE INJ/PF 30 MG/1 ML SDV IV SCH (05:36)
[2020-03-27] MEDS: IBUPROFEN 800 MG TABLET PO SCH ×2 (05:38→13:47)
[2020-03-27] MEDS: DOCUSATE SODIUM 100 MG CAPSULE PO SCH ×2 (10:26→13:51)
[2020-03-27] MEDS: SENNOSIDES/DOCUSATE 8.6-50 MG 1 EACH TABLET PO SCH (10:27)
[2020-03-27] MEDS: ACETAMINOPHEN WITH CODEINE #3 TABLET PO PRN (10:27)
[2020-03-27] MEDS: FERROUS SULFATE 325 MG TABLET PO SCH (10:27)
[2020-03-27] MEDS: PRENATAL VITAMIN W DHA CAPSULE PO SCH ×2 (10:27→13:52)
--- NOTE | 2020-03-27 11:56 | PDOC DISCHARGE SUMMARY ---
Impression - Admit/DC Date/PCP Admission Date/Primary Care Provider: 03/24/20 09:28 TAYA CANALES MD Discharge Date: 03/27/20 - Discharge Diagnosis (1) Carrier of group B Streptococcus Is this a current diagnosis for this admission?: Yes (2) Spontaneous rupture of membranes Is this a current diagnosis for this admission?: Yes (3) S/P repeat low transverse Is this a current diagnosis for this admission?: Yes (4) Previous section Is this a current diagnosis for this admission?: Yes - Assessment Summary: 29yo L2 s/p repeat ppd3 stable and ready for discharge. Understands warning s/s. Has scheduled f/u on wednesday at [facility]. asked questions and verbalized understanding - Additional Information Resuscitation Status: Full Code Discharge Diet: As Tolerated, Regular Discharge Activity: Activity As Tolerated, Balance Activity w/Rest, No Driving, No Lifting Over 10 Pounds, Pelvic Rest, No tub bath, Walk Frequently Referrals: TAYA CANALES MD [Primary Care Provider] - Prescriptions: Acetaminophen with Codeine [Tylenol #3 Tablet] 1 each PO Q4HP PRN #20 tablet PRN Reason: For Pain Scale 3-5 Ibuprofen [Motrin 800 mg Tablet] 800 mg PO Q8HP PRN #30 tablet PRN Reason: For Pain Scale 1-3 Docusate Sodium [Colace 100 mg Capsule] 100 mg PO BID #60 capsule Ferrous Sulfate [Feosol 325 mg Tablet] 325 mg PO BID #60 tablet Home Medications: Acetaminophen with Codeine [Tylenol #3 Tablet] 1 each PO Q4HP PRN #20 tablet 03/27/20 Docusate Sodium [Colace 100 mg Capsule] 100 mg PO BID #60 capsule 03/27/20 Ferrous Sulfate [Feosol 325 mg Tablet] 325 mg PO BID #60 tablet 03/27/20 Ibuprofen [Motrin 800 mg Tablet] 800 mg PO Q8HP PRN #30 tablet 03/27/20 Hospital Course 59. Maternal Morbidity (serious complications experinced by the mother associated with labor and delivery: None of the above Results Laboratory Results: WBC 10.3 10^3/uL (4.0-10.5) 03/25/20 05:54 RBC 3.99 10^6/uL (3.72-5.28) 03/25/20 05:54 Hgb 10.9 g/dL (12.0-15.5) L 03/25/20 05:54 Hct 32.5 % (36.0-47.0) L 03/25/20 05:54 MCV 82 fl (80-97) 03/25/20 05:54 MCH 27.3 pg (27.0-33.4) 03/25/20 05:54 MCHC 33.5 g/dL (32.0-36.0) 03/25/20 05:54 RDW 14.2 % (11.5-14.0) H 03/25/20 05:54 Plt Count 193 10^3/uL (150-450) 03/25/20 05:54 Lymph % (Auto) 27.3 % (13-45) 03/24/20 09:37 Allen % (Auto) 6.5 % (3-13) 03/24/20 09:37 Eos % (Auto) 0.9 % (0-6) 03/24/20 09:37 Baso % (Auto) 0.4 % (0-2) 03/24/20 09:37 Absolute Neuts (auto) 5.2 10^3/uL (1.7-8.2) 03/24/20 09:37 Absolute Lymphs (auto) 2.2 10^3/uL (0.5-4.7) 03/24/20 09:37 Absolute Monos (auto) 0.5 10^3/uL (0.1-1.4) 03/24/20 09:37 Absolute Eos (auto) 0.1 10^3/uL (0.0-0.6) 03/24/20 09:37 Absolute Basos (auto) 0.0 10^3/uL (0.0-0.2) 03/24/20 09:37 Seg Neutrophils % 64.9 % (42-78) 03/24/20 09:37 Urine Color YELLOW 03/24/20 09:10 Urine Appearance SLIGHTLY-CLOUDY 03/24/20 09:10 Urine pH 7.0 (5.0-9.0) 03/24/20 09:10 Ur Specific [place] 1.008 03/24/20 09:10 Urine Protein NEGATIVE mg/dL (NEGATIVE) 03/24/20 09:10 Urine Glucose (UA) NEGATIVE mg/dL (NEGATIVE) 03/24/20 09:10 Urine Ketones NEGATIVE mg/dL (NEGATIVE) 03/24/20 09:10 Urine Blood NEGATIVE (NEGATIVE) 03/24/20 09:10 Urine Nitrite NEGATIVE (NEGATIVE) 03/24/20 09:10 Urine Bilirubin NEGATIVE (NEGATIVE) 03/24/20 09:10 Urine Urobilinogen NEGATIVE mg/dL (<2.0) 03/24/20 09:10 Ur Leukocyte Esterase NEGATIVE (NEGATIVE) 03/24/20 09:10 Urine Ascorbic Acid NEGATIVE (NEGATIVE) 03/24/20 09:10 Membranes Rupture POSITIVE (NEGATIVE) H 03/24/20 09:10 Urine Opiates Screen NEGATIVE 03/24/20 09:10 Urine Methadone Screen NEGATIVE 03/24/20 09:10 Ur Barbiturates Screen NEGATIVE 03/24/20 09:10 Ur Phencyclidine Scrn NEGATIVE 03/24/20 09:10 Ur Amphetamines Screen NEGATIVE 03/24/20 09:10 U Benzodiazepines Scrn NEGATIVE 03/24/20 09:10 Urine Cocaine Screen NEGATIVE 03/24/20 09:10 U Marijuana (THC) Screen NEGATIVE 03/24/20 09:10 RPR NONREACTIVE (NONREACTIVE) 03/24/20 09:37 Blood Type A POSITIVE 03/24/20 09:37 Antibody Screen NEGATIVE 03/24/20 09:37
[2020-03-27 12:29] VITALS: BP 114/58
== END 2020-03-27 14:02 | disposition home or self-care (01) | DRG 788 ==
LOC: LC 08:59 → LR 09:28 → 2N 13:00
PROVIDERS: ADMIT Student in an Organized Health Care Education/Training Program; ATTEND Student in an Organized Health Care Education/Training Program
PROC: 10D00Z1 Extraction of Products of Conception, Low, Open Approach (ICD-10-PCS; principal; 2020-03-24)
DX: O34.211 Maternal care for low transverse scar from previous cesarean delivery (principal); O69.81X0 Labor and delivery complicated by cord around neck, without compression, not applicable or unspecified; O99.824 Streptococcus B carrier state complicating childbirth; O36.63X0 Maternal care for excessive fetal growth, third trimester, not applicable or unspecified; O77.0 Labor and delivery complicated by meconium in amniotic fluid; O34.13 Maternal care for benign tumor of corpus uteri, third trimester; D25.9 Leiomyoma of uterus, unspecified; N85.8 Other specified noninflammatory disorders of uterus; Z3A.39 39 weeks gestation of pregnancy; Z37.0 Single live birth
CPT/HCPCS: 1961; 36415; 80307; 81005; 84112; 85025; 85027; 86592; 86850; 86900; 86901; 88307; 94760; 94799; 99140; J0131; J0690; J1885; J2250; J2405; J2540; J2590; J3010; J3490; J7060; J7120